=== PATIENT | female | born 1955 | race Caucasian/White ===

== ENCOUNTER → 2016-04-19 | Outpatient (CLI) | payer OTHER ==
[~2016-04-19] MED LIST: ACET-1256 PO; CEFD300C3 PO; CETI10TA10 PO; CLB/200 PO; CMD/25 PO; ENOX40IN SQ; FLUT0.0529 NAE; FLUT0.15 NAE; FLUT1INH INH; ONDA4TAB46 PO; OXYSR10 PO; QSTP PO; RXC5 PO; SNK PO; SYMIN160 PO; VTMD PO; WARF2.5T8 PO; WARF5TAB7 PO
--- NOTE | 2016-04-19 12:15 | DIAGNOSTIC IMAGING REPORT ---
FUSION CT SINUSES W/O CLINICAL HISTORY: R09.81 Nasal [id number] Chronic [id number] COMPARISON STUDY: No previous studies for comparison. FINDINGS: No orbital masses are visualized. There is no hydrocephalus. The mastoid air cells are symmetrically aerated. Middle ear cavities appear well aerated. There is a right maxilla sinus air-fluid level. There is mild left maxillary sinus mucosal thickening. There is fluid within the left sphenoid. There is moderate mucosal thickening involving ethmoid air cells. There is minimal mucosal disease within the frontal sinuses. The left ostiomeatal unit appears patent. There is obstruction of the right ostiomeatal unit. There is mild nasal septal deviation to the right. IMPRESSION: Pansinus disease with a right maxilla sinus air-fluid level and obstruction of the right ostiomeatal unit Electronically signed by: Yariel Beal M.D. 04/19/2016 12:13 PM Dictated Date/Time: 04/19/2016 12:11 PM
== END | disposition home or self-care (01) ==
LOC: C.CTS 11:51
PROVIDERS: ATTEND Hospitalist
DX: R09.81 Nasal congestion (principal); J32.4 Chronic pansinusitis; J34.89 Other specified disorders of nose and nasal sinuses

== ENCOUNTER → 2016-04-25 | Outpatient (CLI) | payer OTHER ==
--- NOTE | 2016-04-25 15:45 | DIAGNOSTIC IMAGING REPORT ---
TWO VIEW CHEST CLINICAL HISTORY: Community-acquired pneumonia. FINDINGS: PA and lateral chest radiographs are compared to study dated 03/12/2016. Correlation is made with chest CT dated 09/22/2015. The cardiomediastinal silhouette is unremarkable. There are streaky airspace opacities at the left lung base. The right lung appears clear. No pleural effusion is identified. There is no pneumothorax. The skeletal structures are osteopenic. The bony thorax appears intact. IMPRESSION: There are streaky airspace opacities at the left lung base. This could represent atelectasis versus an infectious or inflammatory pneumonitis. Clinical correlation will be required and radiographic follow-up to resolution is recommended. Electronically signed by: Baabk Hart M.D. 04/25/2016 3:43 PM Dictated Date/Time: 04/25/2016 3:41 PM
== END | disposition home or self-care (01) ==
LOC: C.RAD1850 15:32
PROVIDERS: ATTEND Internal Medicine Pulmonary Disease
DX: J18.9 Pneumonia, unspecified organism (principal)

== ENCOUNTER → 2016-05-28 | Outpatient (CLI) | payer OTHER ==
[2016-05-28 17:45] LABS: BASO % 0.2 %; BASO ABS # 0.01 K/uL (0-0.2); COMPLETE YES; EOS % 2.4 %; HEMATOCRIT 40.8 % (37-47); IG% 0.2 %; LYMPH % 19.3 %; LYMPH ABS # 1.11 K/uL (1.2-3.4); MEAN CELL VOLUME 82.9 fL (80-100); MEAN CORPUSCULAR HEMOGLOBIN 27.4 pg (25-34); MEAN CORPUSCULAR HGB CONC 33.1 g/dl (32-36); MEAN PLATELET VOLUME 9.7 fL (7.4-10.4); MONO % 8.2 %; NEUT % 69.7 %; PLATELET COUNT 213 K/uL (130-400); RED BLOOD COUNT 4.92 M/uL (4.2-5.4); WHITE BLOOD COUNT 5.75 K/uL (4.8-10.8)
[2016-05-28 18:06] LABS: ALT/SGPT 25 U/L (12-78); AST/SGOT 19 U/L (15-37)
[2016-05-28 18:09] LABS: ALKALINE PHOSPHATASE 88 U/L (45-117)
== END | disposition home or self-care (01) ==
LOC: C.LABBC 14:48
PROVIDERS: ATTEND Internal Medicine Rheumatology
DX: R76.8 Other specified abnormal immunological findings in serum (principal); M05.741 Rheumatoid arthritis with rheumatoid factor of right hand without organ or systems involvement; M05.742 Rheumatoid arthritis with rheumatoid factor of left hand without organ or systems involvement; Z51.81 Encounter for therapeutic drug level monitoring; Z79.01 Long term (current) use of anticoagulants

== ENCOUNTER 2016-07-03 04:36 | Observation (INO) | payer OTHER ==
[~2016-07-03] VITALS: Ht 165.1 cm; Wt 86.6 kg
[~2016-07-03 04:36] MED LIST changes: -ACET-1256 PO; -ENOX40IN SQ; -FLUT0.15 NAE; -FLUT1INH INH; -ONDA4TAB46 PO; -OXYSR10 PO; -QSTP PO; -RXC5 PO; -SNK PO; -SYMIN160 PO; -VTMD PO; -WARF2.5T8 PO; -WARF5TAB7 PO
[2016-07-03] MEDS ORDERED: ONDANSETRON INJ 2 MG/ML 2 ML VIAL IV STA ×2 (04:46→06:48)
[2016-07-03] MEDS ORDERED: SODIUM CHLORIDE 0.9% 1000ML 1,000 ML IV STA ×2 (04:46→06:05)
--- NOTE | 2016-07-03 04:49 | EMERGENCY ROOM VISIT NOTE ---
History Report prepared by Mono: Saul Pa Under the Supervision of: Dr. Anselmo Vizcaino M.D. First contact with patient: 04:41 Chief Complaint: DIZZY Stated Complaint: DIZZY, NAUSEA History of Present Illness The patient is a 61 year old female who presents to the Emergency Room with complaints of dizziness that began 3 hours ago. The patient's symptoms began with cramping in her legs and fingers. This then progressed into dizziness and nausea. She denies any fever, chest pain, shortness of breath, vomiting, melena , or urinary symptoms. She had Crohn's disease in the past, but it is now in remission. She has an colostomy bag in place that has been having a lot of output. She felt like this once in the past. She notes she is trying to keep up with her fluid intake. Source of History: patient, spouse/significant other Onset: 3 hours ago Position: other (global) Symptom Intensity: moderate Quality: other (dizziness) Timing: intermittent Associated Symptoms: + nausea, No SOB, No chest pain, No fevers, No melena, No urinary symptoms Review of Systems See HPI for pertinent positives & negatives. A total of 10 systems reviewed and were otherwise negative. Past Medical & Surgical Medical Problems: (1) Colectomy (2) Deep venous thrombosis (3) History of - section (4) History of appendectomy (5) History of repair of inguinal hernia (6) Incisional hernia repair (7) Menopause present (8) Partial colectomy (9) Plantar fascial fibromatosis (10) SICCA SYNDROME Old medical records were reviewed. Nurse's notes were reviewed and I agree with. Family History Blood clots Social History Smoking Status: Never Smoker Alcohol Use: none, occasionally Drug Use: none Marital Status: Housing Status: lives with family Occupation Status: employed Current/Historical Medications Scheduled Budesonide/Formoterol Fumarate (Symbicort 160/4.5 Inhaler), 2 PUFFS PO BID Celecoxib (CeleBREX), 200 MG PO BID Warfarin Sod (Coumadin), 5 MG PO WK Warfarin Sod (Coumadin), 2.5 MG PO 6XWK Scheduled PRN Fluticasone Propionate (Nasal) (Flonase Allergy Relief), 2 SPRAYS FREDIS QPM PRN for Nasal Congestion Allergies Coded Allergies: Ciprofloxacin (Verified Allergy, Intermediate, IV DOSE-BURNED UP ARM, 07/03) Iodinated Diagnostic Agents (Verified Allergy, Unknown, CAT SCAN DYE-RASH ITCHING, 07/03/16) Physical Exam Vital Signs Date Time Temp Pulse Resp B/P Pulse Ox O2 Delivery O2 Flow Rate FiO2 07/03/16 07:30 82 18 120/86 98 Room Air 07/03/16 06:11 65 20 143/86 99 Room Air 07/03/16 04:43 94 07/03/16 04:40 36.5 88 20 132/74 98 Room Air Physical Exam General: Non ill appearing older female. Well developed well nourished in no acute distress, breathing comfortably on room air. Normal speech HEENT: Normal cephalic atraumatic. Pupils are equal round and reactive to light. Sclerae anicteric. No nystagmus. Extraocular movements are intact. Oropharynx is pink with moist mucous membranes. No swelling of the mouth lips or tongue. Neck: Supple with a midline trachea. No meningeal signs or stiffness, no JVD or bruits. No Stridor. Chest: Clear to auscultation bilaterally. No wheezes or rhonchi. No increased work of breathing. Heart: regular rate and rhythm. Abdomen: Soft nontender, nondistended without rebound guarding or rigidity. Extremities: No cyanosis clubbing or edema. No calf tenderness or assymetry Spine/Back. Non tender to palpation. No CVA tenderness Skin: Good turgor without rashes. Neurologic exam: Cranial nerves two through 12 are intact. Motor and sensation are intact and symmetrical throughout. Medical Decision & Procedures Laboratory Results 07/03/16 04:48 Red Blood Count 5.77, Mean Corpuscular Volume 79.2, Mean Corpuscular Hemoglobin 27.0, Mean Corpuscular Hemoglobin Concent 34.1, Mean Platelet Volume 9.2, Neutrophils (%) (Auto) 74.4, Lymphocytes (%) (Auto) 15.8, Monocytes (%) (Auto) 7.8, Eosinophils (%) (Auto) 1.7, Basophils (%) (Auto) 0.1, Neutrophils # (Auto) 7.90, Lymphocytes # (Auto) 1.68, Monocytes # (Auto) 0.83, Eosinophils # (Auto) 0.18, Basophils # (Auto) 0.01 07/03/16 04:48 Test 07/03/16 04:48 07/03/16 04:54 White Blood Count 10.62 K/uL (4.8-10.8) Red Blood Count 5.77 M/uL (4.2-5.4) Hemoglobin 15.6 g/dL (12.0-16.0) Hematocrit 45.7 % (37-47) Mean Corpuscular Volume 79.2 fL (80-100) Mean Corpuscular Hemoglobin 27.0 pg (25-34) Mean Corpuscular Hemoglobin Concent 34.1 g/dl (32-36) Platelet Count 205 K/uL (130-400) Mean Platelet Volume 9.2 fL (7.4-10.4) Neutrophils (%) (Auto) 74.4 % Lymphocytes (%) (Auto) 15.8 % Monocytes (%) (Auto) 7.8 % Eosinophils (%) (Auto) 1.7 % Basophils (%) (Auto) 0.1 % Neutrophils # (Auto) 7.90 K/uL (1.4-6.5) Lymphocytes # (Auto) 1.68 K/uL (1.2-3.4) Monocytes # (Auto) 0.83 K/uL (0.11-0.59) Eosinophils # (Auto) 0.18 K/uL (0-0.5) Basophils # (Auto) 0.01 K/uL (0-0.2) RDW Standard Deviation 41.4 fL (36.4-46.3) RDW Coefficient of Variation 14.5 % (11.5-14.5) Immature Granulocyte % (Auto) 0.2 % Immature Granulocyte # (Auto) 0.02 K/uL (0.00-0.02) Anion Gap 10.0 mmol/L (3-11) Est Creatinine Clear Calc Drug Dose 54.9 ml/min Estimated GFR () 57.3 Estimated GFR (Non- 49.4 BUN/Creatinine Ratio 18.3 (10-20) Calcium Level 10.3 mg/dl (8.5-10.1) Total Bilirubin 0.6 mg/dl (0.2-1) Direct Bilirubin 0.1 mg/dl (0-0.2) Aspartate Amino Transf (AST/SGOT) 22 U/L (15-37) Alanine Aminotransferase (ALT/SGPT) 32 U/L (12-78) Alkaline Phosphatase 95 U/L (45-117) Total Protein 9.3 gm/dl (6.4-8.2) Albumin 4.0 gm/dl (3.4-5.0) Lipase 497 U/L (73-393) Bedside Troponin I 0.000 ng/ml (0-0.045) Laboratory studies as stated above per my review. Medications Administered Medications (Trade) Dose Ordered Sig/Jimmy Route Start Time Stop Time Status Last Admin Dose Admin Sodium Chloride (Nss 1000ml) 1,000 ml @ 999 mls/hr Q1H1M STAT IV 07/03/16 04:46 07/03/16 05:46 DC 07/03/16 04:53 999 MLS/HR Ondansetron HCl 4 mg 4 mg NOW STAT IV 07/03/16 04:46 07/03/16 04:47 DC 07/03/16 04:53 4 MG Sodium Chloride (Nss 1000ml) 1,000 ml @ 999 mls/hr Q1H1M STAT IV 07/03/16 06:05 07/03/16 07:05 DC 07/03/16 06:55 999 MLS/HR Ondansetron HCl (Zofran Inj) 4 mg NOW STAT IV 07/03/16 06:48 07/03/16 06:49 DC 07/03/16 06:54 4 MG ECG Indication: other (Dizziness) Rate (beats per minute): 63 Rhythm: normal sinus Findings: no acute ischemic change, no ectopy Comparison ECG Date: 19 Aug 2015 Change: no significant change ED Course 0441: Past medical records reviewed. The patient was evaluated in room A2, and a complete history and physical examination were performed. 0446: Zofran Inj 4 mg IV, Sodium Chloride 1000 ml @ 200 mls/hr IV, Sodium Chloride 1000 ml @ 999 mls/hr IV 0512: The patient states that she is beginning to feel better. 0605: Sodium Chloride 1000 ml @ 999 mls/hr IV 0648: Zofran Inj 4 mg IV 0730: Upon reevaluation, the patient is resting. I discussed the results and treatment plan with her. She verbalized agreement of the treatment plan. The patient was discharged home. Medical Decision Differentials include dehydration, electrolyte or metabolic abnormality, arrhythmia, and acute coronary syndrome. This patient comes in as described above she's been feeling dehydrated had some muscle cramps. She's had increased output in her ostomy. She felt a little dizzy as well. She has had no chest pain or shortness of breath. No blood in her stool. No recent illness or sick contacts. She's felt like this before when she's gotten dehydrated she tells m. e IV access established and she received 2 L IV normal saline in the ER. She received Zofran IV 2. EKG does not suggest acute coronary syndrome or arrhythmia. She has no acute electrolyte or metabolic abnormalities. His stool was negative for C. difficile. She was reassessed frequently. She's had multiple episodes of a large amount of greenish stool in her ostomy with gas. I think she is having some high-output. Despite having 2 L of IV normal saline and Zofran IV. she still does not feel well enough to go home. I do think she needs to be observed for further hydration and treatment. Impression Primary Impression: Dizziness Additional Impression: Dehydration Scribe Attestation The scribe's documentation has been prepared under my direction and personally reviewed by me in its entirety. I confirm that the note above accurately reflects all work, treatment, procedures, and medical decision making performed by me. Departure Information Dispostion Home / Self-Care Referrals Mary Arnett C.R.N.P. (PCP) Forms HOME CARE DOCUMENTATION FORM, IMPORTANT VISIT INFORMATION Patient Instructions My [facility] Problem Qualifiers
[2016-07-03] MEDS: SODIUM CHLORIDE 0.9% 1000ML 1,000 ML IV ONE ×3 (04:53→08:19)
[2016-07-03 04:59] LABS: BASO % 0.1 %; BASO ABS # 0.01 K/uL (0-0.2); COMPLETE YES; EOS % 1.7 %; HEMATOCRIT 45.7 % (37-47); IG% 0.2 %; LYMPH % 15.8 %; LYMPH ABS # 1.68 K/uL (1.2-3.4); MEAN CELL VOLUME 79.2 fL (80-100); MEAN CORPUSCULAR HGB CONC 34.1 g/dl (32-36); MEAN PLATELET VOLUME 9.2 fL (7.4-10.4); MONO % 7.8 %; NEUT % 74.4 %; PLATELET COUNT 205 K/uL (130-400); RED BLOOD COUNT 5.77 M/uL (4.2-5.4); WHITE BLOOD COUNT 10.62 K/uL (4.8-10.8)
[2016-07-03] MEDS ORDERED: SYMIN160 PO (05:00)
[2016-07-03] MEDS ORDERED: FLUT0.15 NAE (05:00)
[2016-07-03 05:19] LABS: BUN/CREATININE RATIO 18.3 (10-20); CALCIUM 10.3 mg/dl (8.5-10.1); CREATININE 1.2 mg/dl (0.60-1.20); POTASSIUM 4.1 mmol/L (3.5-5.1)
--- NOTE | 2016-07-03 09:09 | History and Physical ---
History & Physical Date & Time of Service: Jul 03, 2016 at 09:00 Chief Complaint: Dizzy, Nausea Primary Care Physician: Mary Arnett C.R.N.P. History of Present Illness Source: patient, family, clinic records, hospital records This patient is a pleasant 61-year-old female that presents the emergency department complaining of muscle cramping, nausea and increased output from her ostomy that started around 7 PM last night. The patient reports emptying her bag 6 times since 7 PM last night. She also notes a lot of gas in the bag. She denies any blood in the stool. She feels very nauseated but has not had any emesis. She denies any fever or chills. She denies any significant abdominal pain. No sick contacts. No antibiotic use recently. The patient has a history of Crohn's disease. She had a total colectomy and ileostomy performed in 2011 at [facility]. Her Crohn's disease has been in remission since. 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 Has a history of stroke Father-also living. History of coronary artery disease status post CABG Social History Smoking Status: Never Smoker Smokeless Tobacco Use: No Alcohol Use: none Drug Use: none Marital Status: Housing status: lives with family Occupational Status: employed Immunizations History of Influenza Vaccine: No History of Tetanus Vaccine?: Yes Tetanus Immunization Date: Apr 14, 2007 History of Pneumococcal: No History of Hepatitis B Vaccine: Yes Hepatitis Immunization Date: Apr 14, 2009 Multi-Drug Resistant Organisms History of MDRO: No Allergies Coded Allergies: Ciprofloxacin (Verified Allergy, Intermediate, IV DOSE-BURNED UP ARM, 07/03) Iodinated Diagnostic Agents (Verified Allergy, Unknown, CAT SCAN DYE-RASH ITCHING, 07/03/16) Home Medications Scheduled Budesonide/Formoterol Fumarate (Symbicort 160/4.5 Inhaler), 2 PUFFS PO BID Celecoxib (CeleBREX), 200 MG PO BID Warfarin Sod (Coumadin), 5 MG PO WK Warfarin Sod (Coumadin), 2.5 MG PO 6XWK Scheduled PRN Fluticasone Propionate (Nasal) (Flonase Allergy Relief), 2 SPRAYS FREDIS QPM PRN for Nasal Congestion Review of Systems 10 system review performed and negative unless noted in HPI or below Physical Exam Vital Signs Date Time Temp Pulse Resp B/P Pulse Ox O2 Delivery O2 Flow Rate FiO2 07/03/16 08:51 70 18 129/76 98 Room Air 07/03/16 08:25 70 07/03/16 07:30 82 18 120/86 98 Room Air 07/03/16 06:11 65 20 143/86 99 Room Air 07/03/16 04:43 94 07/03/16 04:40 36.5 88 20 132/74 98 Room Air VITALS: Vitals are noted on the nurse's note and reviewed by myself. Vital signs stable. GENERAL: 61-year-old female, in no acute distress, SKIN: The skin was without rashes, erythema, edema, or bruising. HEAD: Normocephalic atraumatic. EYES: Pupils equal round and reactive to light and accommodation. Conjunctivae without injection, sclerae without icterus. Extraocular movements intact. MOUTH: Mucous membranes slightly dry. NECK: Supple without nuchal rigidity. No JVD. HEART: Regular rate and rhythm without murmurs gallops or rubs. LUNGS: Clear to auscultation bilaterally without wheezes, rales or rhonchi. No accessory muscle use. ABDOMEN: Bowel sounds present, but hypoactive. Large amount of liquid green stool noted in the ostomy. Midline well-healed incision noted. Nontender. Nondistended. MUSCULOSKELETAL: No muscle atrophy, erythema, or edema noted. Strength 5/5 throughout. NEURO: Patient was alert and oriented to person place and time. Normal sensation to touch. No focal neurological deficits. Diagnostics Laboratory Results Results Past 24 Hours Test 07/03/16 04:48 07/03/16 04:54 Range/Units White Blood Count 10.62 4.8-10.8 K/uL Red Blood Count 5.77 4.2-5.4 M/uL Hemoglobin 15.6 12.0-16.0 g/dL Hematocrit 45.7 37-47 % Mean Corpuscular Volume 79.2 80-100 fL Mean Corpuscular Hemoglobin 27.0 25-34 pg Mean Corpuscular Hemoglobin Concent 34.1 32-36 g/dl Platelet Count 205 130-400 K/uL Mean Platelet Volume 9.2 7.4-10.4 fL Neutrophils (%) (Auto) 74.4 % Lymphocytes (%) (Auto) 15.8 % Monocytes (%) (Auto) 7.8 % Eosinophils (%) (Auto) 1.7 % Basophils (%) (Auto) 0.1 % Neutrophils # (Auto) 7.90 1.4-6.5 K/uL Lymphocytes # (Auto) 1.68 1.2-3.4 K/uL Monocytes # (Auto) 0.83 0.11-0.59 K/uL Eosinophils # (Auto) 0.18 0-0.5 K/uL Basophils # (Auto) 0.01 0-0.2 K/uL RDW Standard Deviation 41.4 36.4-46.3 fL RDW Coefficient of Variation 14.5 11.5-14.5 % Immature Granulocyte % (Auto) 0.2 % Immature Granulocyte # (Auto) 0.02 0.00-0.02 K/uL Sodium Level 139 136-145 mmol/L Potassium Level 4.1 3.5-5.1 mmol/L Chloride Level 103 98-107 mmol/L Carbon Dioxide Level 26 21-32 mmol/L Anion Gap 10.0 3-11 mmol/L Blood Urea Nitrogen 22 7-18 mg/dl Creatinine 1.20 0.60-1.20 mg/dl Est Creatinine Clear Calc Drug Dose 54.9 ml/min Estimated GFR () 57.3 Estimated GFR (Non- 49.4 BUN/Creatinine Ratio 18.3 10-20 Random Glucose 137 70-99 mg/dl Calcium Level 10.3 8.5-10.1 mg/dl Total Bilirubin 0.6 0.2-1 mg/dl Direct Bilirubin 0.1 0-0.2 mg/dl Aspartate Amino Transf (AST/SGOT) 22 15-37 U/L Alanine Aminotransferase (ALT/SGPT) 32 12-78 U/L Alkaline Phosphatase 95 45-117 U/L Total Protein 9.3 6.4-8.2 gm/dl Albumin 4.0 3.4-5.0 gm/dl Lipase 497 73-393 U/L Bedside Troponin I 0.000 0-0.045 ng/ml Microbiology Results 07/03/16 WBC Smear - Final, Resulted 07/03/16 Shiga Toxin Test, Resulted Pending 07/03/16 Stool Culture, Resulted Pending 07/03/16 C.difficile Toxin B Gene (PCR) - Final, Complete No C. difficile toxin B gene detected Impression Assessment and Plan 61-year-old female presents emergency department with main complaint of nausea and increased output from her ileostomy. Also notes muscle cramping in her lower legs. Nausea, diarrhea-possible viral GI illness. Recurrent Crohn's flare thought to be less likely. I do not have a high suspicion for bacterial infection as the patient is afebrile with no leukocytosis -Observe medical floor -Continue IVF -NS + 20 mEq KCl @ 125 cc/hr -Continue Zofran 4 mg every 6 hours as needed for nausea. I will also add Phenergan 12.5 mg IV every 6 hours. These may be alternated as needed -Stool culture, WBC, C. difficile -If no improvement in 24 hours, consider CT of the abdomen and pelvis to evaluate for possible Crohn's flare -Follow CBC and electrolytes History of DVT -Continue home dose of warfarin. Patient reports taking 2.5 mg every day but Friday when she takes 5 mg -follow INR History Sjogren syndrome-noted DVT prophylaxis -Coumadin -Teds, SCDs CODE STATUS -LEVEL I FULL CODE PA Physician Supervision Note: I interviewed and examined the patient. Discussed with Taylor LE and agree with findings and plan as documented in the note. Any exceptions or clarifications are listed here: None This pt has high ostomy output, recent viral exposure to grandchild vss abd with hyperactive bowel sounds, soft supportive care for likely viral gastroenteritis Documented By: Harvey June Level of Care Med/Surg Resuscitation Status FULL RESUSCITATION VTE Prophylaxis VTE Risk Assessment Done? Y/N: Yes Risk Level: Moderate Given or contraindicated: Warfarin (Coumadin), T.E.D. Stockings, SCD's
[2016-07-03] MEDS ORDERED: ACETAMINOPHEN 325 MG TAB PO PRN (09:15)
[2016-07-03] MEDS ORDERED: PROMETHAZINE HCL INJ 12.5 MG in SODIUM CHLORIDE 0.9% 50ML 50 ML IV PRN (09:15)
[2016-07-03] MEDS ORDERED: ONDANSETRON INJ 2 MG/ML 2 ML VIAL IV PRN (09:15)
[2016-07-03 09:47] LABS: INR 1.8 (0.9-1.1); PROTHROMBIN TIME (PATIENT) 19.4 SECONDS (9.0-12.0)
[2016-07-03] MEDS ORDERED: IV FLUIDS COMPLETED PRN (10:15)
[2016-07-03 10:30] VITALS: BP 127/77; PULSE 67; TEMP 36.8; Ht 165.1 cm; Wt 86.6 kg
[2016-07-03] MEDS ORDERED: NURSING VERBAL MED ORDER ONE (11:00)
[2016-07-03] MEDS: NSS + 20MEQ KCL 1000ML 1,000 ML IV SCH ×2 (11:11→20:54)
[2016-07-03 15:52] VITALS: BP 134/78; PULSE 77; TEMP 36.6; O2SAT 97
[2016-07-03] MEDS ORDERED: WARFARIN SOD 2.5 MG TAB PO SCH (16:00)
[2016-07-03 16:05] VITALS: O2SAT 97
[2016-07-03] MEDS: CeleBREX 200 MG CAP PO SCH (20:54)
[2016-07-03] MEDS: BUDESONIDE/FORMOTEROL FUMARATE 160/4.5 60 PUFFS/INHALER INH SCH (20:55)
[2016-07-03 23:58] VITALS: BP 117/62; PULSE 71; TEMP 36.6; O2SAT 94
[2016-07-04] MEDS: NSS + 20MEQ KCL 1000ML 1,000 ML IV SCH (03:23)
[2016-07-04 06:12] LABS: BASO % 0.1 %; BASO ABS # 0.01 K/uL (0-0.2); COMPLETE YES; EOS % 5.1 %; HEMATOCRIT 42.7 % (37-47); IG% 0.1 %; LYMPH % 15.8 %; LYMPH ABS # 1.11 K/uL (1.2-3.4); MEAN CELL VOLUME 81.6 fL (80-100); MEAN CORPUSCULAR HEMOGLOBIN 26.2 pg (25-34); MEAN CORPUSCULAR HGB CONC 32.1 g/dl (32-36); MEAN PLATELET VOLUME 9.1 fL (7.4-10.4); MONO % 8.1 %; NEUT % 70.8 %; PLATELET COUNT 179 K/uL (130-400); RED BLOOD COUNT 5.23 M/uL (4.2-5.4); WHITE BLOOD COUNT 7.04 K/uL (4.8-10.8)
[2016-07-04 06:24] LABS: INR 2.1 (0.9-1.1); PROTHROMBIN TIME (PATIENT) 23.7 SECONDS (9.0-12.0)
[2016-07-04 06:41] LABS: BUN/CREATININE RATIO 9.6 (10-20); CALCIUM 8.7 mg/dl (8.5-10.1); CREATININE 1.1 mg/dl (0.60-1.20); MAGNESIUM 1.9 mg/dl (1.8-2.4); POTASSIUM 4.7 mmol/L (3.5-5.1)
[2016-07-04 07:57] VITALS: BP 136/88; PULSE 60; TEMP 36.3; O2SAT 100
[2016-07-04] MEDS: CeleBREX 200 MG CAP PO SCH (08:35)
[2016-07-04] MEDS: BUDESONIDE/FORMOTEROL FUMARATE 160/4.5 60 PUFFS/INHALER INH SCH (08:35)
[2016-07-04 10:04] VITALS: BP_SYST 107; BP_SYST 113; BP_SYST 125; BP_DIAS 73; BP_DIAS 82; PULSE 69; PULSE 75; PULSE 90
[2016-07-04] MEDS ORDERED: ONDA4TAB46 PO (10:37)
--- NOTE | 2016-07-04 10:42 | Discharge Instructions ---
Discharge Instructions Date of Service Jul 04, 2016. Admission Reason for Admission: Dehydration Discharge Discharge Diagnosis / Problem: viral GI illness Discharge Goals Goal(s): Improve function Activity Recommendations Activity Limitations: resume your previous activity . Instructions / Follow-Up Instructions / Follow-Up You have been treated in the hospital for vomiting and diarrhea. This is likely caused by a GI illness. You were treated with IV fluids and antinausea medication Please follow a bland diet. Avoid spicy or acidic foods. No alcohol, caffeine or nicotine. Increase fluids over the next 2 days The following changes/additions have been made to your medication list: -Zofran 4 mg every 6 hours as needed for nausea -I would recommend holding Celebrex for 2 days if possible Please follow up with your family physician within one week Call your doctor or return to the emergency department if you have any of the following symptoms: -Fever of 101F or greater -Persistent vomiting - Persistent diarrhea -Severe abdominal pain -Chest pain -Shortness of breath -severe dizziness -weakness on one side of your body Current Hospital Diet Patient's current hospital diet: Regular Diet Discharge Diet Recommended Diet: Regular Diet (bland) Pending Studies Studies pending at discharge: yes List of pending studies: Stool culture Medical Emergencies . Who to Call and When: Medical Emergencies: If at any time you feel your situation is an emergency, please call 911 immediately. . Non-Emergent Contact Non-Emergency issues call your: Primary Care Provider . . "Provider Documentation" section prepared by Taylor Gonzales. VTE Core Measure Inpt VTE Proph given/why not?: Warfarin (Coumadin), Chely Paul, SCD's
--- NOTE | 2016-07-04 10:53 | Discharge Summary ---
Discharge Summary Date of Service Jul 04, 2016. (Taylor Gonzales PA-C) Discharge Summary Admission Date: Jul 03, 2016 at 09:24 Discharge Date: Jul 04, 2016 Discharge Disposition: Home Principal Diagnosis: viral GI illness Problems/Secondary Diagnoses: DVT Crohn's disease Restrictive airway disease Immunizations: Have You Had Influenza Vaccine: No History of Tetanus Vaccine?: Yes Tetanus Immunization Date: Apr 14, 2007 History of Pneumococcal: No History of Hepatitis B Vaccine: Yes Hepatitis Immunization Date: Apr 14, 2009 (Taylor Gonzales PA-C) Medication Reconciliation New Medications: Ondansetron Hcl (Zofran) 4 Mg Tab 4 MG PO Q6H PRN for Nausea, #20 TAB Continued Medications: Budesonide/Formoterol Fumarate (Symbicort 160/4.5 Inhaler) 120 Puffs/ Aero 2 PUFFS PO BID Celecoxib (CeleBREX) 200 Mg Cap 200 MG PO BID, CAP Fluticasone Propionate (Nasal) (Flonase Allergy Relief) 50 Mcg/Act Spr 2 SPRAYS FREDIS QPM PRN for Nasal Congestion Warfarin Sod (Coumadin) 2.5 Mg Tab 5 MG PO WK, #10 TAB ONLY SAT EVENING Warfarin Sod (Coumadin) 2.5 Mg Tab 2.5 MG PO 6XWK, #30 TAB [id number] Referrals At Discharge Follow up Referrals: Physician Referral - Within 1-2 Weeks with Mary Arnett C.R.N.P. Discharge Exam Doing much better this morning. Denies any nausea. Tolerating her clear liquid diet. Output from the ostomy has significantly decreased. Denies any abdominal pain or fevers. Review of Systems: Constitutional: No fever Respiratory: No shortness of breath Cardiovascular: No chest pain Abdomen: No nausea Neurologic: No weakness Physical Exam: General Appearance: no apparent distress Eyes: EOMI ENT: + pertinent finding (oral mucosa slightly dry) Neck: no JVD Respiratory/Chest: lungs clear Cardiovascular: regular rate, rhythm Abdomen / GI: normal bowel sounds, non tender, soft, + pertinent finding ( ostomy bag approximately 1/4 full of green/brown stool.) Extremities: no calf tenderness, no pedal edema Neurologic/Psychiatric: no motor/sensory deficits, oriented x 3 Skin: warm/dry (Taylor Gonzales PA-C) Hospital Course 61-year-old female presents emergency department with main complaint of nausea and increased output from her ileostomy. Also notes muscle cramping in her lower legs. Nausea, and increased output from the ostomy/diarrhea-likely viral GI illness given recent exposure to grandchild. Recurrent Crohn's flare thought to be less likely. I do not have a high suspicion for bacterial infection as the patient is afebrile with no leukocytosis -Observed medical floor -treated with IVF, zofran and phenergan -C. difficile negative. Shiga toxin negative. Many WBCs seen in the stool. -Stool culture pending -Tolerating full diet on the day of discharge -given Rx for zofran PRN History of DVT-INR therapeutic on the day of discharge at 2.1 -Continue home dose of warfarin. Patient reports taking 2.5 mg every day but Friday when she takes 5 mg History Sjogren syndrome-noted DVT prophylaxis -Coumadin -Teds, SCDs CODE STATUS -LEVEL I FULL CODE Total Time Spent: Greater than 30 minutes This includes examination of the patient, discharge planning, medication reconciliation, and communication with other providers. (Taylor Gonzales PA-C) PA Physician Supervision Note: I interviewed and examined the patient. Discussed with Taylor Gonzales PAC and agree with findings and plan as documented in the note. Any exceptions or clarifications are listed here: None This pt has reduced ostomy output, recent viral exposure to grandchild vss, infectious studies are normal abd with hyperactive bowel sounds, soft, less fluid in ostomy bag, non tender ok for home likely viral gastroenteritis Documented By: Harvey June (Harvey June M.D.) Discharge Instructions Please refer to the electronic Patient Visit Report (Discharge Instructions) for additional information. (Taylor Gonzales PA-C) Follow-Up PCP in 1 week (Taylor Gonzales PA-C) Additional Copies To Mary Arnett C.R.N.P.
[2016-07-04 12:15] VITALS: BP 107/73; PULSE 90; TEMP 36.3; O2SAT 100
[2016-07-06] MEDS ORDERED: WARFARIN SOD 5 MG TAB PO SCH (16:00)
[2016-07-09] MEDS ORDERED: QSTP PO (14:13)
[2016-07-09] MEDS ORDERED: VTMD PO (14:13)
[2016-11-15] MEDS ORDERED: WARF2.5T8 PO (13:12)
[2016-11-15] MEDS ORDERED: FLUT1INH INH (13:12)
[2016-11-15] MEDS ORDERED: WARF5TAB7 PO (13:12)
== END 2016-07-04 13:40 | disposition home or self-care (01) ==
LOC: ENRESERVTM → ENRESERVDT → EDBD 04:36 → C.EDA 04:38 → C.MS4W 09:24
PROVIDERS: ADMIT Internal Medicine; ATTEND Internal Medicine
DX: E86.0 Dehydration (principal); B34.9 Viral infection, unspecified; R42 Dizziness and giddiness; K50.90 Crohn's disease, unspecified, without complications; Z93.2 Ileostomy status; M35.00 Sjogren syndrome, unspecified; M06.9 Rheumatoid arthritis, unspecified; J45.909 Unspecified asthma, uncomplicated; Z90.49 Acquired absence of other specified parts of digestive tract; Z88.1 Allergy status to other antibiotic agents; Z91.041 Radiographic dye allergy status; Z86.718 Personal history of other venous thrombosis and embolism; Z79.01 Long term (current) use of anticoagulants; Z82.49 Family history of ischemic heart disease and other diseases of the circulatory system; Z82.3 Family history of stroke

== ENCOUNTER 2016-07-08 00:37 | Observation (INO) | payer OTHER ==
[~2016-07-08] VITALS: Ht 160 cm; Wt 83.6 kg
[~2016-07-08 00:37] MED LIST changes: -CEFD300C3 PO; -CETI10TA10 PO; -FLUT0.0529 NAE; +FLUT0.15 NAE; +ONDA4TAB46 PO; +SYMIN160 PO
[2016-07-08] MEDS ORDERED: ONDANSETRON INJ 2 MG/ML 2 ML VIAL IV STA (01:02)
[2016-07-08] MEDS ORDERED: SODIUM CHLORIDE 0.9% 1000ML 1,000 ML IV ONE ×3 (01:15→04:45)
[2016-07-08 01:16] LABS: BASO % 0.3 %; BASO ABS # 0.02 K/uL (0-0.2); COMPLETE YES; EOS % 2.5 %; HEMATOCRIT 41.4 % (37-47); IG% 0.3 %; LYMPH % 13.8 %; LYMPH ABS # 1.04 K/uL (1.2-3.4); MEAN CELL VOLUME 79.2 fL (80-100); MEAN CORPUSCULAR HEMOGLOBIN 27.2 pg (25-34); MEAN CORPUSCULAR HGB CONC 34.3 g/dl (32-36); NEUT % 76.1 %; PLATELET COUNT 175 K/uL (130-400); RED BLOOD COUNT 5.23 M/uL (4.2-5.4); WHITE BLOOD COUNT 7.54 K/uL (4.8-10.8)
[2016-07-08 01:35] LABS: BUN/CREATININE RATIO 19.3 (10-20); CALCIUM 9.2 mg/dl (8.5-10.1); CREATININE 1.2 mg/dl (0.60-1.20); MAGNESIUM 1.9 mg/dl (1.8-2.4); POTASSIUM 3.9 mmol/L (3.5-5.1)
[2016-07-08 01:38] LABS: ALB/GLOB RATIO 0.8 (0.9-2)
[2016-07-08] MEDS ORDERED: PROMETHAZINE HCL INJ 12.5 MG in SODIUM CHLORIDE 0.9% 50ML 50 ML IV STA (04:14)
--- NOTE | 2016-07-08 04:20 | EMERGENCY ROOM VISIT NOTE ---
ED Visit Note First contact with patient: 00:45 I saw this patient in conjunction with Luther Garcia PA-C. I agree with his decision making and treatment plan.
[2016-07-08 05:27] LABS: INR 2.8 (0.9-1.1); PARTIAL THROMBOPLASTIN RATIO 1.4; PROTHROMBIN TIME (PATIENT) 30.9 SECONDS (9.0-12.0)
--- NOTE | 2016-07-08 05:42 | History and Physical ---
History & Physical Date & Time of Service: Jul 08, 2016 at 05:37 Chief Complaint: Nausea,Fluid Loss Primary Care Physician: Mary Arnett C.R.N.P. History of Present Illness Source: patient, family This is a 61 y/o F who presents with a 1 day history of high output from her ostomy. She was recently admitted for similar complaints. At the time she was treated with IVFs and anti-nausea meds. Her diarrhea improved and she was discharged soon after. She reports that she remained asymptomatic for 4-5 days after until yesterday when her stools were watery again and green. She did have exposure to her grand kids who had some diarrhea in the last week. She denies antibiotic use. While in the ED for the first 3 hours, she put out approximately 1 L of watery stools and had about 875 ml of emesis. 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 Denies melena, hematochezia, hematemesis, chest pain, shortness of breath, fevers, chills, dizziness. She reports having tried the protocol given by her GI doc for high output- combination of Gatorade, water and soda- but there was no improvement. Past Medical/Surgical History Medical Problems: (1) Colectomy Status: Resolved (2) Deep venous thrombosis Status: Resolved (3) History of - section Status: Resolved (4) History of appendectomy Status: Resolved (5) History of repair of inguinal hernia Status: Resolved (6) Incisional hernia repair Status: Resolved (7) Menopause present Status: Chronic (8) Partial colectomy Status: Resolved (9) Plantar fascial fibromatosis Status: Chronic (10) SICCA SYNDROME Status: Resolved Family History Blood clots Social History Smoking Status: Never Smoker Alcohol Use: none Drug Use: none Marital Status: Housing status: lives with family Occupational Status: employed Immunizations History of Influenza Vaccine: No History of Tetanus Vaccine?: Yes Tetanus Immunization Date: Apr 14, 2007 History of Pneumococcal: No History of Hepatitis B Vaccine: Yes Hepatitis Immunization Date: Apr 14, 2009 Multi-Drug Resistant Organisms History of MDRO: No Allergies Coded Allergies: Ciprofloxacin (Verified Allergy, Intermediate, IV DOSE-BURNED UP ARM, 07/08) Iodinated Diagnostic Agents (Verified Allergy, Unknown, CAT SCAN DYE-RASH ITCHING, 07/08/16) Home Medications Scheduled Budesonide/Formoterol Fumarate (Symbicort 160/4.5 Inhaler), 2 PUFFS PO BID Celecoxib (CeleBREX), 200 MG PO BID Warfarin Sod (Coumadin), 5 MG PO WK Warfarin Sod (Coumadin), 2.5 MG PO 6XWK Scheduled PRN Fluticasone Propionate (Nasal) (Flonase Allergy Relief), 2 SPRAYS FREDIS QPM PRN for Nasal Congestion Ondansetron Hcl (Zofran), 4 MG PO Q6H PRN for Nausea Review of Systems Constitutional: No chills, No fever, No sweats, No weakness, No weight loss Respiratory: No cough, No dyspnea at rest, No dyspnea on exertion, No shortness of breath, No sputum, No wheezing Abdomen: + diarrhea, + nausea, + vomiting Genitourinary - Female: No dysuria, No urinary frequency, No urinary urgency Physical Exam Vital Signs Date Time Temp Pulse Resp B/P Pulse Ox O2 Delivery O2 Flow Rate FiO2 07/08/16 04:12 72 20 135/68 99 Room Air 07/08/16 02:09 80 18 129/71 100 Room Air 07/08/16 00:39 37.0 84 18 156/73 97 Room Air General Appearance: no apparent distress Eyes: normal inspection, PERRL, EOMI Neck: no adenopathy Respiratory/Chest: lungs clear, normal breath sounds, no respiratory distress, no accessory muscle use Cardiovascular: regular rate, rhythm, no edema Abdomen/GI: soft, + abnormal bowel sounds (hyperactive), + pertinent finding ( ostomy intact, bag with green watery stool) Extremities/Musculoskelatal: no calf tenderness, normal capillary refill, no pedal edema Neurologic/Psych: no motor/sensory deficits, alert, normal mood/affect, oriented x 3 Diagnostics Laboratory Results Results Past 24 Hours Test 07/08/16 01:05 Range/Units White Blood Count 7.54 4.8-10.8 K/uL Red Blood Count 5.23 4.2-5.4 M/uL Hemoglobin 14.2 12.0-16.0 g/dL Hematocrit 41.4 37-47 % Mean Corpuscular Volume 79.2 80-100 fL Mean Corpuscular Hemoglobin 27.2 25-34 pg Mean Corpuscular Hemoglobin Concent 34.3 32-36 g/dl Platelet Count 175 130-400 K/uL Mean Platelet Volume 9.0 7.4-10.4 fL Neutrophils (%) (Auto) 76.1 % Lymphocytes (%) (Auto) 13.8 % Monocytes (%) (Auto) 7.0 % Eosinophils (%) (Auto) 2.5 % Basophils (%) (Auto) 0.3 % Neutrophils # (Auto) 5.74 1.4-6.5 K/uL Lymphocytes # (Auto) 1.04 1.2-3.4 K/uL Monocytes # (Auto) 0.53 0.11-0.59 K/uL Eosinophils # (Auto) 0.19 0-0.5 K/uL Basophils # (Auto) 0.02 0-0.2 K/uL RDW Standard Deviation 41.4 36.4-46.3 fL RDW Coefficient of Variation 14.4 11.5-14.5 % Immature Granulocyte % (Auto) 0.3 % Immature Granulocyte # (Auto) 0.02 0.00-0.02 K/uL Prothrombin Time 30.9 9.0-12.0 SECONDS Prothromb Time International Ratio 2.8 0.9-1.1 Activated Partial Thromboplast Time 36.2 21.0-31.0 SECONDS Partial Thromboplastin Ratio 1.4 Sodium Level 143 136-145 mmol/L Potassium Level 3.9 3.5-5.1 mmol/L Chloride Level 106 98-107 mmol/L Carbon Dioxide Level 25 21-32 mmol/L Anion Gap 12.0 3-11 mmol/L Blood Urea Nitrogen 23 7-18 mg/dl Creatinine 1.20 0.60-1.20 mg/dl Est Creatinine Clear Calc Drug Dose 52.1 ml/min Estimated GFR () 57.3 Estimated GFR (Non- 49.4 BUN/Creatinine Ratio 19.3 10-20 Random Glucose 140 70-99 mg/dl Calcium Level 9.2 8.5-10.1 mg/dl Magnesium Level 1.9 1.8-2.4 mg/dl Total Bilirubin 0.3 0.2-1 mg/dl Aspartate Amino Transf (AST/SGOT) 24 15-37 U/L Alanine Aminotransferase (ALT/SGPT) 30 12-78 U/L Alkaline Phosphatase 85 45-117 U/L Total Protein 8.0 6.4-8.2 gm/dl Albumin 3.6 3.4-5.0 gm/dl Globulin 4.4 2.5-4.0 gm/dl Albumin/Globulin Ratio 0.8 0.9-2 Impression Assessment and Plan This is a 61 y/o F with a history of Crohn's dz s/p Colectomy and ostomy who presents for the 2nd time with high output from her ostomy. High output from ostomy: IV NSS Cholestyramine Electrolyte management Keep NPO Since this is second admission, will consult GI for further recommendations Zofran for Nausea C.Diff, Stool cultures KUB without evidence of bowel obstruction. History of DVT Continue Coumadin Code: Full Level of Care Med/Surg Resuscitation Status FULL RESUSCITATION VTE Prophylaxis VTE Risk Assessment Done? Y/N: Yes Risk Level: Moderate Assessment and Plan Attending Addendum: I have physically seen and examined this patient, have directed their medical care, have supervised the medical residents activities, and agree with the H&P as noted above, with the following changes: The patient is awake, well-developed and adequately nourished, alert and oriented 3, normocephalic and atraumatic, lying in bed and in no acute distress. HEENT--PERRL, EOMI, mucous membranes and oropharynx dry. Neck--supple, no JVD or bruits, thyroid normal, trachea midline, no adenopathy. Heart--normal S1 and S2, no extra beats, no murmurs, rubs or gallops. Lungs--clear bilaterally with good air movement, no respiratory distress, no accessory muscle use. Abdomen--normal bowel sounds and soft, nontender and nondistended, no hernias or masses, no organomegaly. Ostomy patent. Extremities--no cyanosis, clubbing or edema. There are good distal pulses b/l. Dermatologic--normal skin turgor, normal color, warm and dry, no abnormal lymph nodes, no rash. Neurologic--cranial nerves II through XII grossly intact, motor and sensory examination normal. Rheumatologic--normal range of motion, nontender, muscles and joints. Psychiatric--normal affect. High output through ostomy--the patient was admitted from [facility] through July 04 the same complaints, and was treated conservatively. She reports that she had felt better until approximately 10:00 PM this evening when she started having abrupt increase in output again. She'll be admitted for observation. We'll aggressively hydrate with IV fluids, follow serial electrolytes. Stool studies are pending. We'll consult her psychiatry adult physician Dr. Drummond. Zofran 4 mg IV every 6 hours when necessary nausea, Protonix 40 mg IV daily for acid reduction. She may be a candidate cholestyramine later on to help control symptoms, but we will not prescribe at this time. Chronic anticoagulation--INR has been added to her laboratories per my request and is still pending at this time. Coumadin will be dosed appropriately based on results of pending INR.
[2016-07-08] MEDS ORDERED: ENOXAPARIN 40 MG/0.4 ML SYR SQ SCH (05:45)
[2016-07-08] MEDS ORDERED: ACETAMINOPHEN 325 MG TAB PO PRN (05:45)
[2016-07-08] MEDS ORDERED: ONDANSETRON INJ 2 MG/ML 2 ML VIAL IV PRN ×2 (05:45)
[2016-07-08] MEDS ORDERED: POLYETHYLENE (MIRALAX) 17 GM PACK PO PRN (05:45)
[2016-07-08] MEDS ORDERED: MAGNESIUM HYDROXIDE SUSP 30 ML UDC PO PRN (05:45)
[2016-07-08] MEDS ORDERED: ALUMINUM/MAGNESIUM/SIMETH (MAALOX MAX) 30 ML UDC PO PRN (05:45)
[2016-07-08] MEDS ORDERED: FLUTICASONE PROPIONATE NA SPR 16 GM BTL NAE PRN (05:45)
[2016-07-08] MEDS ORDERED: IV FLUIDS COMPLETED PRN (06:30)
[2016-07-08 07:13] VITALS: BP 126/80; PULSE 80; TEMP 36.6; O2SAT 98
--- NOTE | 2016-07-08 07:32 | DIAGNOSTIC IMAGING REPORT ---
KUB CLINICAL HISTORY: Nausea and vomiting. FINDINGS: 2 AP supine abdominal radiographs are compared to study dated 11/03/2011 and correlated with abdominal CT dated 07/01/2010. There is a nonobstructed abdominal bowel gas pattern. Suture material is noted in the right lower quadrant and there is a right lower quadrant ostomy. No evidence of intraperitoneal free air is seen on these supine views. There are no abnormal abdominal calcifications. The skeletal structures are osteopenic and there is mild lumbosacral spondylosis. IMPRESSION: Nonobstructed abdominal bowel gas pattern noting postoperative changes as above. Electronically signed by: Babak Hart M.D. 07/08/2016 7:31 AM Dictated Date/Time: 07/08/2016 7:29 AM
[2016-07-08] MEDS: BUDESONIDE/FORMOTEROL FUMARATE 160/4.5 60 PUFFS/INHALER INH SCH ×2 (07:52→19:59)
[2016-07-08] MEDS: CeleBREX 200 MG CAP PO SCH ×2 (07:54→19:59)
[2016-07-08] MEDS: CHOLESTYRAMINE LIGHT 4 GM PKT PO SCH ×2 (07:54→21:34)
[2016-07-08 08:00] VITALS: BP 126/80; PULSE 80; TEMP 36.6; O2SAT 98; Ht 160 cm; Wt 83.6 kg
[2016-07-08 08:13] LABS: BUN/CREATININE RATIO 18.6 (10-20); CALCIUM 8.2 mg/dl (8.5-10.1); MAGNESIUM 1.7 mg/dl (1.8-2.4)
[2016-07-08 08:14] LABS: PHOSPHORUS 2.6 mg/dl (2.5-4.9)
[2016-07-08] MEDS ORDERED: CHLORASEPTIC 1.4% SOLN 180 ML BTL MT PRN (10:30)
[2016-07-08] MEDS ORDERED: NURSING VERBAL MED ORDER ONE (10:30)
--- NOTE | 2016-07-08 10:56 | Gastrointestinal Consultation ---
Gastrointestinal Consultation Date of Consultation: Jul 08, 2016 Attending Physician: Sarah Consulting Physician: Pradeep Reason for Consultation: high output from ileostomy History of Present Illness Ms. Ortiz is a 61 year old female with past medical history significant for DVT (on Coumadin), Crohn's (total proctocolectomy with ileostomy 2011), sicca syndrome, SVT an anemia who presents to the ED with high output from her ostomy bag. She reports that this happened last week as well but resolved with bowel rest and IVF, stools were negative during previous admission. Prior to arrival on 07/08/16 she was experiencing fatigue, increase output and nausea. There was one episode of emesis in the ED. She reports she feels much better since she was admitted. Denies fever, chills, nausea, vomiting. + sick contacts. She was with her grand-kids las week who were sick. Drinks well water. Denies any issues with flare or symptoms. She stopped humira in 03/29 an has been doing well since. Her arthralgia are being managed by Celebrex. KUB 07/08/16: 2 AP supine abdominal radiographs are compared to study dated 2011 and correlated with abdominal CT dated 07/01/2010. There is a nonobstructed abdominal bowel gas pattern. Suture material is noted in the right lower quadrant and there is a right lower quadrant ostomy. No evidence of intraperitoneal free air is seen on these supine views. There are no abnormal abdominal calcifications. The skeletal structures are osteopenic and there is mild lumbosacral spondylosis. Colon 05/10/11: Inflammation was found from the rectum to the cecum secondary to pancolitis. The findings are unchanged compared to previous examinations. This was biopsied for histology and CMV. Patent end-to-side colo-colonic anastomosis. The examined portion of the ileum was normal. This was biopsied. Past Medical/Surgical History Medical Problems: (1) Cough Status: Acute (2) Dehydration Status: Acute (3) Dizziness Status: Acute (4) Lower extremity cellulitis Status: Acute Family History Blood clots Social History Smoking Status: Never Smoker Alcohol Use: none, occasionally Drug Use: none Marital Status: Housing Status: lives with family Occupation Status: employed Allergies Coded Allergies: Ciprofloxacin (Verified Allergy, Intermediate, IV DOSE-BURNED UP ARM, 07/08) Iodinated Diagnostic Agents (Verified Allergy, Unknown, CAT SCAN DYE-RASH ITCHING, 07/08/16) Current Medications Home Meds and Scripts Medications Dose Route/Sig Max Daily Dose Days Date Category Dose Instructions Zofran (Ondansetron HCl) 4 Mg Tab 4 Mg PO Q6H PRN 07/04/16 Rx Flonase Allergy Relief (Fluticasone Propionate (Nasal)) 50 Mcg/Act Spr 2 Sprays FREDIS QPM PRN 07/03/16 Reported Symbicort 160/4.5 Inhaler (Budesonide/Formoterol Fumarate) 120 Puffs/ Aero 2 Puffs PO BID 07/03/16 Reported CeleBREX (Celecoxib) 200 Mg Cap 200 Mg PO BID 08/19/15 Reported Coumadin (Warfarin Sod) 2.5 Mg Tab 2.5 Mg PO 6XWK 10/14/14 Rx [id number] Coumadin (Warfarin Sod) 2.5 Mg Tab 5 Mg PO WK 10/14/14 Rx ONLY SAT EVENING Review of Systems Constitutional: No chills, No fever Respiratory: No cough, No shortness of breath Cardiac: No chest pain, No edema Abdomen: + diarrhea (typically emptys ostomy bag 2 times daily, has emptied three time this morning), No GI bleeding, No constipation, No nausea, No pain, No vomiting Physical Exam Date Time Temp Pulse Resp B/P Pulse Ox O2 Delivery O2 Flow Rate FiO2 07/08/16 08:00 36.6 80 20 126/80 98 Room Air 07/08/16 07:13 36.6 80 20 126/80 98 Room Air 07/08/16 06:45 84 20 131/89 97 07/08/16 06:03 89 20 117/58 98 Room Air 07/08/16 04:12 72 20 135/68 99 Room Air 07/08/16 02:09 80 18 129/71 100 Room Air 07/08/16 00:39 37.0 84 18 156/73 97 Room Air General Appearance: no apparent distress Eyes: PERRL ENT: hearing grossly normal Neck: supple, trachea midline Respiratory/Chest: lungs clear, normal breath sounds, no respiratory distress, no accessory muscle use Cardiovascular: regular rate, rhythm, no edema, no gallop, no JVD, no murmur Abdomen: normal bowel sounds, non tender, soft, + pertinent finding (ostomy bag LLQ, stool is liquid an brown, no black/bloody ) Neurologic/Psych: alert, normal mood/affect, oriented x 3 Skin: normal color, no jaundice, warm/dry Laboratory Results Last 24 Hours Test 07/08/16 01:05 07/08/16 07:35 White Blood Count 7.54 K/uL Red Blood Count 5.23 M/uL Hemoglobin 14.2 g/dL Hematocrit 41.4 % Mean Corpuscular Volume 79.2 fL Mean Corpuscular Hemoglobin 27.2 pg Mean Corpuscular Hemoglobin Concent 34.3 g/dl Platelet Count 175 K/uL Mean Platelet Volume 9.0 fL Neutrophils (%) (Auto) 76.1 % Lymphocytes (%) (Auto) 13.8 % Monocytes (%) (Auto) 7.0 % Eosinophils (%) (Auto) 2.5 % Basophils (%) (Auto) 0.3 % Neutrophils # (Auto) 5.74 K/uL Lymphocytes # (Auto) 1.04 K/uL Monocytes # (Auto) 0.53 K/uL Eosinophils # (Auto) 0.19 K/uL Basophils # (Auto) 0.02 K/uL RDW Standard Deviation 41.4 fL RDW Coefficient of Variation 14.4 % Immature Granulocyte % (Auto) 0.3 % Immature Granulocyte # (Auto) 0.02 K/uL Prothrombin Time 30.9 SECONDS Prothromb Time International Ratio 2.8 Activated Partial Thromboplast Time 36.2 SECONDS Partial Thromboplastin Ratio 1.4 Sodium Level 143 mmol/L 143 mmol/L Potassium Level 3.9 mmol/L 4.0 mmol/L Chloride Level 106 mmol/L 110 mmol/L Carbon Dioxide Level 25 mmol/L 24 mmol/L Anion Gap 12.0 mmol/L 9.0 mmol/L Blood Urea Nitrogen 23 mg/dl 19 mg/dl Creatinine 1.20 mg/dl 1.00 mg/dl Est Creatinine Clear Calc Drug Dose 52.1 ml/min 62.0 ml/min Estimated GFR () 57.3 71.4 Estimated GFR (Non- 49.4 61.6 BUN/Creatinine Ratio 19.3 18.6 Random Glucose 140 mg/dl 97 mg/dl Calcium Level 9.2 mg/dl 8.2 mg/dl Magnesium Level 1.9 mg/dl 1.7 mg/dl Total Bilirubin 0.3 mg/dl Aspartate Amino Transf (AST/SGOT) 24 U/L Alanine Aminotransferase (ALT/SGPT) 30 U/L Alkaline Phosphatase 85 U/L Total Protein 8.0 gm/dl Albumin 3.6 gm/dl Globulin 4.4 gm/dl Albumin/Globulin Ratio 0.8 Phosphorus Level 2.6 mg/dl Impression Patient is a 61 year old female with high output ostomy output. Differentials include infectious colitis, viral gastroenteritis, etc. Labs stable and without elevated WBC. Plan IV NSS Stool culture including O&P and c.diff GI ok for clear liquids. Zofran as needed Further recommendations pending stools. I have seen and examined the patient with Lilibeth Culver whose note reflects our findings and plan.
[2016-07-08] MEDS ORDERED: MAGNESIUM SULFATE 1GM / D5W 1 GM in PREMIXED IN D5W 100 ML IV ONE (13:15)
[2016-07-08 15:54] VITALS: BP 129/80; PULSE 67; TEMP 36.5; O2SAT 97
[2016-07-08] MEDS ORDERED: WARFARIN SOD 2.5 MG TAB PO SCH (16:00)
[2016-07-08 16:30] VITALS: O2SAT 97
[2016-07-08 23:57] VITALS: BP 117/72; PULSE 62; TEMP 36.5; O2SAT 97
--- NOTE | 2016-07-09 07:12 | EMERGENCY ROOM VISIT NOTE ---
History First contact with patient: 00:45 Chief Complaint: NAUSEA Stated Complaint: HIGH OUTPUT ILEOSTOMY Nursing Triage Summary: Per pt, she feels she is nauseated and lossing fluids too quickly through ostomy. 500cc out since 10pm yesterday and reports she had an additional 400cc out in ED this morning. Denies vomiting. Pt admitted last week friday for same thing and d/c . Tx with IV fluids. Pt states "I am not that dehydrated yet, but I wanted to come before it got bad." History of Present Illness The patient is a 61 year old female who presents to the Emergency Room with complaints of nausea and high output from her ostomy. The patient has a history of Crohn's disease in remission, but did require a partial colectomy chronic ostomy bag. The patient was seen for dehydration and high output ostomy earlier this week, where she was admitted, and given hydration. At the time of discharge from the hospital she felt well. The patient reports about 3 hours ago she had 500 mL of output from her ostomy. She then had an additional output of 300-400 mL per hour for the next 2 hours, prompting her to return to the ER. The patient does not have fever or chills. She is without abdominal or chest pains. She had stool cultures that were negative a few days ago. The patient is concern for dehydration and rates her discomfort a 0/10. Review of Systems More than 10 systems were reviewed and otherwise negative with the exception of history of present illness. Past Medical/Surgical History Medical Problems: (1) Colectomy (2) Deep venous thrombosis (3) Dehydration (4) High output ileostomy (5) History of - section (6) History of appendectomy (7) History of repair of inguinal hernia (8) Incisional hernia repair (9) Menopause present (10) Partial colectomy (11) Plantar fascial fibromatosis (12) SICCA SYNDROME Family History Blood clots Social History Smoking Status: Never Smoker Alcohol Use: none, occasionally Drug Use: none Marital Status: Housing Status: lives with family Occupation Status: employed Current/Historical Medications Scheduled Budesonide/Formoterol Fumarate (Symbicort 160/4.5 Inhaler), 2 PUFFS PO BID Celecoxib (CeleBREX), 200 MG PO BID Warfarin Sod (Coumadin), 5 MG PO WK Warfarin Sod (Coumadin), 2.5 MG PO 6XWK Scheduled PRN Fluticasone Propionate (Nasal) (Flonase Allergy Relief), 2 SPRAYS FREDIS QPM PRN for Nasal Congestion Ondansetron Hcl (Zofran), 4 MG PO Q6H PRN for Nausea Allergies Coded Allergies: Ciprofloxacin (Verified Allergy, Intermediate, IV DOSE-BURNED UP ARM, 07/08) Iodinated Diagnostic Agents (Verified Allergy, Unknown, CAT SCAN DYE-RASH ITCHING, 07/08/16) Physical Exam Vital Signs Date Time Temp Pulse Resp B/P Pulse Ox O2 Delivery O2 Flow Rate FiO2 07/08/16 04:12 72 20 135/68 99 Room Air 07/08/16 02:09 80 18 129/71 100 Room Air 07/08/16 00:39 37.0 84 18 156/73 97 Room Air Pain Rating (0-10): 0 Physical Exam VITALS: Vitals are noted on the nurse's note and reviewed by myself. Vital signs stable. GENERAL: Well-developed, well-nourished, white female, who is in no acute distress and resting comfortably. Patient is cooperative with the examination. HEAD: Normocephalic atraumatic. HEART: Regular rate and rhythm without murmurs gallops or rubs. LUNGS: Clear to auscultation bilaterally without wheezes, rales or rhonchi. No retractions or accessory muscle use. ABDOMEN: Positive normal bowel sounds x 4. Soft, nontender, without masses or organomegaly. No guarding or rebound tenderness. MUSCULOSKELETAL: No muscle atrophy, erythema, or edema noted. Full range of motion without joint tenderness in all extremities. Medical Decision & Procedures Laboratory Results 07/08/16 01:05 Red Blood Count 5.23, Mean Corpuscular Volume 79.2, Mean Corpuscular Hemoglobin 27.2, Mean Corpuscular Hemoglobin Concent 34.3, Mean Platelet Volume 9.0, Neutrophils (%) (Auto) 76.1, Lymphocytes (%) (Auto) 13.8, Monocytes (%) (Auto) 7.0, Eosinophils (%) (Auto) 2.5, Basophils (%) (Auto) 0.3, Neutrophils # (Auto) 5.74, Lymphocytes # (Auto) 1.04, Monocytes # (Auto) 0.53, Eosinophils # (Auto) 0.19, Basophils # (Auto) 0.02 Test 07/08/16 01:05 White Blood Count 7.54 K/uL (4.8-10.8) Red Blood Count 5.23 M/uL (4.2-5.4) Hemoglobin 14.2 g/dL (12.0-16.0) Hematocrit 41.4 % (37-47) Mean Corpuscular Volume 79.2 fL (80-100) Mean Corpuscular Hemoglobin 27.2 pg (25-34) Mean Corpuscular Hemoglobin Concent 34.3 g/dl (32-36) Platelet Count 175 K/uL (130-400) Mean Platelet Volume 9.0 fL (7.4-10.4) Neutrophils (%) (Auto) 76.1 % Lymphocytes (%) (Auto) 13.8 % Monocytes (%) (Auto) 7.0 % Eosinophils (%) (Auto) 2.5 % Basophils (%) (Auto) 0.3 % Neutrophils # (Auto) 5.74 K/uL (1.4-6.5) Lymphocytes # (Auto) 1.04 K/uL (1.2-3.4) Monocytes # (Auto) 0.53 K/uL (0.11-0.59) Eosinophils # (Auto) 0.19 K/uL (0-0.5) Basophils # (Auto) 0.02 K/uL (0-0.2) RDW Standard Deviation 41.4 fL (36.4-46.3) RDW Coefficient of Variation 14.4 % (11.5-14.5) Immature Granulocyte % (Auto) 0.3 % Immature Granulocyte # (Auto) 0.02 K/uL (0.00-0.02) Prothrombin Time 30.9 SECONDS (9.0-12.0) Prothromb Time International Ratio 2.8 (0.9-1.1) Activated Partial Thromboplast Time 36.2 SECONDS (21.0-31.0) Partial Thromboplastin Ratio 1.4 Total Bilirubin 0.3 mg/dl (0.2-1) Aspartate Amino Transf (AST/SGOT) 24 U/L (15-37) Alanine Aminotransferase (ALT/SGPT) 30 U/L (12-78) Alkaline Phosphatase 85 U/L (45-117) Total Protein 8.0 gm/dl (6.4-8.2) Albumin 3.6 gm/dl (3.4-5.0) Globulin 4.4 gm/dl (2.5-4.0) Albumin/Globulin Ratio 0.8 (0.9-2) Medications Administered Medications (Trade) Dose Ordered Sig/Jimmy Route Start Time Stop Time Status Last Admin Dose Admin Sodium Chloride 1,000 ml @ 999 mls/hr Q1H1M ONCE IV 07/08/16 01:15 07/08/16 02:15 DC 07/08/16 01:18 999 MLS/HR Sodium Chloride (Nss 1000ml) 1,000 ml @ 999 mls/hr Q1H1M ONCE IV 07/08/16 01:15 07/08/16 02:15 DC 07/08/16 01:18 999 MLS/HR Ondansetron HCl 4 mg 4 mg NOW STAT IV 07/08/16 01:02 07/08/16 01:04 DC 07/08/16 01:18 4 MG Promethazine HCl 12.5 mg/Sodium Chloride 50.5 ml @ 204 mls/hr NOW STAT IV 07/08/16 04:14 07/08/16 04:28 DC 07/08/16 04:45 204 MLS/HR Sodium Chloride (Nss 1000ml) 1,000 ml @ 250 mls/hr Q4H ONCE IV 07/08/16 04:45 07/08/16 07:11 DC 07/08/16 04:45 250 MLS/HR ED Course Physical exam and history were performed. Nursing notes and EMR were reviewed. Patient appears to have reports of high output ostomy for the past 3 hours. She has had greater than 1 L of output in this time. On examination the patient does appear well. IV access was established and labs were obtained. She was hydrated with 2 L of normal saline and given 4 mg IV Zofran. The patient's blood work is as above and was reviewed. She does not have a significantly elevated white blood cell count, gross anemia, bandemia, or significant electrolyte imbalance. The patient was monitored for several hours here in the emergency department. Nursing and watched her output from the ileostomy very closely. The first hour the patient at 75 mL output, and her second hour here she had 125 mL. The patient was starting to feel well, but then had output of 425 mL followed by 850 mL of emesis. She was given IV Phenergan and another liter of normal saline. The case was discussed with my attending physician, Dr. Vogt, who also an apparently evaluated the patient. We have concern the patient has a high output ostomy with vomiting that will cause her severe dehydration. The case was discussed with the on-call hospitalist, who agreed to evaluate the patient here in the ER. Please see their dictation for further patient course, plan, and disposition. The chart was completed utilizing [employer] Speech Voice Recognition Software. Grammatical errors, random word insertions, pronoun errors, and incomplete sentences are an occasional consequence of this system due to software limitations, ambient noise, and hardware issues. Any formal questions or concerns about the content, text, or information contained within the body of this dictation should be directly addressed to the provider for clarification. . Medical Decision Differential diagnosis: Etiologies such as gastroenteritis, food borne illness, infections, appendicitis , diverticulitis, inflammatory bowel disease, obstruction, GI bleed, biliary pathology, as well as others were entertained. Impression Primary Impression: High output ileostomy Additional Impression: Dehydration Departure Information Dispostion Still a Patient Referrals Mary Arnett C.R.N.P. (PCP) Forms HOME CARE DOCUMENTATION FORM, IMPORTANT VISIT INFORMATION Patient Instructions My [facility] Problem Qualifiers
[2016-07-09 07:36] VITALS: BP 116/72; PULSE 71; TEMP 36.5; O2SAT 99
[2016-07-09] MEDS: CHOLESTYRAMINE LIGHT 4 GM PKT PO SCH (09:04)
[2016-07-09] MEDS: CeleBREX 200 MG CAP PO SCH (09:05)
[2016-07-09] MEDS: BUDESONIDE/FORMOTEROL FUMARATE 160/4.5 60 PUFFS/INHALER INH SCH (09:05)
[2016-07-09 10:38] LABS: INR 3.5 (0.9-1.1); PROTHROMBIN TIME (PATIENT) 39.9 SECONDS (9.0-12.0)
--- NOTE | 2016-07-09 10:45 | Gastroenterology Progress Note ---
Progress Note Date of Service: Jul 09, 2016 Subjective Pt evaluation today including: conversation w/ patient, physical exam, chart review, lab review Pt was seen and examined this morning. She reports she is feeling much better. No longer feels dehydrated. No longer having increased ostomy output. Reports her output is now back down to her baseline. Tolerated dinner and breakfast well. No fever, chills, chest pain, SOB, abdominal pain, nausea, vomiting black/ bloody stools. C.diff negative Culture pending Giardia pending Review of Systems Constitutional: No chills, No fever Respiratory: No cough, No shortness of breath Cardiac: No chest pain, No edema Abdomen: No GI bleeding, No constipation, No diarrhea, No nausea, No pain, No vomiting Skin: No rash Medications Current Inpatient Medications Medications (Trade) Dose Ordered Sig/Jimmy Route Start Time Stop Time Status Last Admin Dose Admin Acetaminophen (Tylenol Tab) 650 mg Q4H PRN PO 07/08/16 05:45 08/07/16 05:44 Al Hydrox/Mg Hydrox/Simethicone (Maalox Max Susp) 15 ml Q4H PRN PO 07/08/16 05:45 08/07/16 05:44 Magnesium Hydroxide (Milk Of Magnesia Susp) 30 ml Q6H PRN PO 07/08/16 05:45 08/07/16 05:44 Polyethylene (Miralax Powder Packet) 17 gm DAILY PRN PO 07/08/16 05:45 08/07/16 05:44 Ondansetron HCl (Zofran Inj) 4 mg Q6H PRN IV 07/08/16 05:45 08/07/16 05:44 Budesonide/ Formoterol Fumarate (Symbicort 160/ 4.5 Inh) 2 puffs BID INH 07/08/16 08:00 08/07/16 08:59 07/09/16 09:05 2 PUFFS Celecoxib (CeleBREX CAP) 200 mg BID PO 07/08/16 08:00 08/07/16 08:59 07/09/16 09:05 200 MG Fluticasone Propionate (Flonase Nasal [place]) 2 sprays QPM PRN FREDIS 07/08/16 05:45 08/07/16 05:44 Warfarin Sodium (Coumadin Tab) 2.5 mg SuMoTuWeThFr@1600 PO 07/08/16 16:00 08/07/16 15:59 07/08/16 16:39 2.5 MG Warfarin Sodium (Coumadin Tab) 5 mg Sa@1600 PO 07/13/16 16:00 08/12/16 15:59 Cholestyramine Resin (Questran Powder Light) 4 gm BID@10,22 PO 07/08/16 10:00 08/07/16 09:59 07/09/16 09:04 4 GM Miscellaneous (Iv Fluids Completed) 1 ea PRN PRN N/A 07/08/16 06:30 07/08/17 06:29 Phenol (Chloraseptic 1.4% [place]) 1 sprays DAILY PRN MT 07/08/16 10:30 08/07/16 10:29 Objective Vital Signs Date Time Temp Pulse Resp B/P Pulse Ox O2 Delivery O2 Flow Rate FiO2 07/09/16 07:36 36.5 71 20 116/72 99 Room Air 07/09/16 00:01 Room Air 07/08/16 23:57 36.5 62 16 117/72 97 Room Air 07/08/16 16:30 97 Room Air 07/08/16 15:54 36.5 67 20 129/80 97 Room Air Physical Exam General Appearance: no apparent distress (patient is OOB in chair and reading the paper) Eyes: PERRL ENT: hearing grossly normal Neck: supple, trachea midline Respiratory/Chest: lungs clear, normal breath sounds, no respiratory distress, no accessory muscle use Cardiovascular: regular rate, rhythm, no gallop, no JVD Abdomen: normal bowel sounds, non tender, soft, no organomegaly, + pertinent finding (ostomy in place, no erythema or warmth to area. output is loose, brown , no black/bloody stool) Neurologic/Psych: alert, normal mood/affect, oriented x 3 Skin: normal color, no jaundice, warm/dry, no rash Laboratory Results Last 24 Hours Test 07/08/16 11:50 07/09/16 10:15 Prothrombin Time 39.9 SECONDS Prothromb Time International Ratio 3.5 Assessment and Plan Patient is a 61 year old female with high output ostomy output. Differentials include infectious colitis, viral gastroenteritis, etc. Labs stable and without elevated WBC. Today her output is back to normal and she is feeling a lot better. C.diff - Stool cultures pending Diet is tolerated Zofran as needed Keep follow up with Dr. Bhanu fernando No GI contraindication to discharge. Suggest follow up with PCP after discharge.
[2016-07-09 11:12] LABS: BUN/CREATININE RATIO 8.8 (10-20); CALCIUM 9.2 mg/dl (8.5-10.1); CREATININE 1.2 mg/dl (0.60-1.20); MAGNESIUM 2.2 mg/dl (1.8-2.4); POTASSIUM 3.7 mmol/L (3.5-5.1)
[2016-07-09] MEDS ORDERED: VTMD PO (14:13)
[2016-07-09] MEDS ORDERED: QSTP PO (14:13)
--- NOTE | 2016-07-09 14:22 | Discharge Instructions ---
Discharge Instructions Date of Service Jul 09, 2016. Admission Reason for Admission: High Output Ileostomy Discharge Discharge Diagnosis / Problem: High Output from Ileostomy Discharge Goals Goal(s): Learn about illness, Diagnostic testing, Therapeutic intervention Activity Recommendations Activity Limitations: resume your previous activity . Instructions / Follow-Up Instructions / Follow-Up From Dr. Alatorre - 1. for high output from the ileostomy - * take cholestyramine powder twice daily * may use immodium [id number] as needed for ongoing high output/liquid stool * if your output fails to improve or worsens please contact Dr. Drummond's office right away 2. vitamin D deficiency - * take ergocalciferol 59243 unit capsule twice a week for 8 weeks * have your vitamin D level repeated at the conclusion of your course 3. diet - * for the rest of today may increase to full liquids - this includes everything you were served at [facility] PLUS dairy products and cream-based soups * tomorrow may advance to low fiber diet as tolerated * plenty of fluids over the next few days 4. please see your family doctor within 1 week 5. coumadin - * HOLD your coumadin TODAY * resume your coumadin TOMORROW * have your INR checked this or Friday Current Hospital Diet Patient's current hospital diet: Clear Liquid Diet Discharge Diet Recommended Diet: Full Liquid Diet (advance diet over the next 24 hours to low fiber diet ) Procedures Procedures Performed: x-ray of abdomen - normal. Pending Studies Studies pending at discharge: yes List of pending studies: bacterial stool culture - thus far negative but final result pending. giardia antigen stool test. Medical Emergencies . Who to Call and When: Medical Emergencies: If at any time you feel your situation is an emergency, please call 911 immediately. . Non-Emergent Contact Non-Emergency issues call your: Underwriting Operations Manager Call Non-Emergent contact if: temperature is above 100.5, your pain is not controlled, your pain is worsening, your pain is unusual for you, your pain is concerning you, you have any medication questions Your ostomy output worsens or fails to improve (1500cc a day or more consistently) despite use of cholestyramine and/or immodium. . . "Provider Documentation" section prepared by Isaac Alatorre. VTE Core Measure Inpt VTE Proph given/why not?: Warfarin (Coumadin)
[2016-07-09 14:24] VITALS: BP 116/72; PULSE 71; TEMP 36.5; O2SAT 99
[2016-07-10 15:31] LABS: O&P GIARDIA AG NOT DETECTED (NOT DETECTED)
[2016-07-13] MEDS ORDERED: WARFARIN SOD 5 MG TAB PO SCH (16:00)
--- NOTE | 2016-07-17 23:38 | Discharge Summary ---
Discharge Summary Date of Service Jul 17, 2016. Discharge Summary Admission Date: Jul 08, 2016 at 05:27 Discharge Date: Jul 09, 2016 Discharge Disposition: Home Principal Diagnosis: high output from ostomy Problems/Secondary Diagnoses: 1. Crohn's disease s/p total proctocolectomy in 2011 2. ileostomy creation 2011 3. h/o DVT on chronic coumadin 4. h/o SVT 5. vitamin D deficiency 6. hypomagnesemia - resolved Immunizations: Have You Had Influenza Vaccine: No History of Tetanus Vaccine?: Yes Tetanus Immunization Date: Apr 14, 2007 History of Pneumococcal: No History of Hepatitis B Vaccine: Yes Hepatitis Immunization Date: Apr 14, 2009 Consultations: gastroenterology - [facility] GI Medication Reconciliation New Medications: Ergocalciferol (Vitamin D) 50,000 Interunit Cap 62118 UNITS PO twice weekly, #8 CAP 1 Refill Cholestyramine (Cholestyramine Light) 4 Gm Pack 4 GM PO BID@10,22, #60 PKT 2 Refills Continued Medications: Budesonide/Formoterol Fumarate (Symbicort 160/4.5 Inhaler) 120 Puffs/ Aero 2 PUFFS PO BID Celecoxib (CeleBREX) 200 Mg Cap 200 MG PO BID, CAP Fluticasone Propionate (Nasal) (Flonase Allergy Relief) 50 Mcg/Act Spr 2 SPRAYS FREDIS QPM PRN for Nasal Congestion Ondansetron Hcl (Zofran) 4 Mg Tab 4 MG PO Q6H PRN for Nausea, #20 TAB Warfarin Sod (Coumadin) 2.5 Mg Tab 5 MG PO WK, #10 TAB ONLY SAT EVENING Warfarin Sod (Coumadin) 2.5 Mg Tab 2.5 MG PO 6XWK, #30 TAB [id number] Referrals At Discharge Follow up Referrals: [facility] Referral - Please Call For Appointment with Kolton Drummond M.D. Discharge Exam Physical Exam: General Appearance: no apparent distress ENT: pharynx normal Neck: no JVD Respiratory/Chest: lungs clear, no respiratory distress, no accessory muscle use Cardiovascular: regular rate, rhythm, no gallop, no murmur, normal peripheral pulses Abdomen / GI: normal bowel sounds, non tender, soft, no organomegaly, + pertinent finding (ileostomy in place with liquid stool in the bag) Extremities: no pedal edema Neurologic/Psychiatric: alert, oriented x 3 Hospital Course HISTORY OF PRESENT ILLNESS: This is a 61yo female who presents with a 1 day history of high output from her ostomy. She was recently admitted for similar complaints. At the time she was treated with IVFs and anti-nausea meds. Her diarrhea improved and she was discharged soon after. She reports that she remained asymptomatic for 4-5 days after until yesterday when her stools were watery again and green. She did have exposure to her grand kids who had some diarrhea in the last week. She denies antibiotic use. While in the ED for the first 3 hours, she put out approximately 1 L of watery stools and had about 875 ml of emesis. Denies melena, hematochezia, hematemesis, chest pain, shortness of breath, fevers, chills, dizziness. She reports having tried the protocol given by her GI doc for high output- combination of Gatorade, water and soda- but there was no improvement. HOSPITAL COURSE: During the patient's brief stay her ileostomy output improved with use of cholestyramine powder twice daily. Electrolytes were corrected and she was hydrated. She was able to tolerate a clear liquid diet prior to discharge. She was seen in consult by Neeta DESIR who recommended ongoing usage of the bile acid sequestrant following discharge. C. diff toxin, stool culture, and giardia antigen were ALL NEGATIVE. She was counseled that if her output still remained problematic she could also take immodium in addition to the cholestyramine. GI follow-up with Dr. Vladimir Drummond was advised to ensure resolution of this issue. All other medical problems remained stable while here. Discharge INR was 3.5. Finally, a vitamin D level was checked and found to be low at 12.9. An 8-week course of ergocalciferol replacement was recommended. Total Time Spent: Greater than 30 minutes This includes examination of the patient, discharge planning, medication reconciliation, and communication with other providers. Discharge Instructions Please refer to the electronic Patient Visit Report (Discharge Instructions) for additional information. Follow-Up 1. see Ms. Arnett, PCP, within [address] Drummond, Neeta DESIR, within 2 weeks Additional Copies To Kolton Drummond M.D.; Mary Arnett C.R.N.P.
[2016-11-15] MEDS ORDERED: FLUT1INH INH (13:12)
[2016-11-15] MEDS ORDERED: WARF5TAB7 PO (13:12)
[2016-11-15] MEDS ORDERED: WARF2.5T8 PO (13:12)
== END 2016-07-09 14:30 | disposition home or self-care (01) ==
LOC: ENRESERVTM → ENRESERVDT → C.EDB 00:38 → C.4E 05:27
PROVIDERS: ADMIT Student in an Organized Health Care Education/Training Program; ATTEND Internal Medicine
DX: K94.19 Other complications of enterostomy (principal); E86.0 Dehydration; Z86.718 Personal history of other venous thrombosis and embolism; Z90.49 Acquired absence of other specified parts of digestive tract; Z83.2 Family history of diseases of the blood and blood-forming organs and certain disorders involving the immune mechanism; Z79.01 Long term (current) use of anticoagulants; Z79.899 Other long term (current) drug therapy

== ENCOUNTER → 2016-08-26 | Outpatient (CLI) | payer OTHER ==
[~2016-08-26] MED LIST changes: +ACET-1256 PO; +ENOX40IN SQ; +FLUT1INH INH; +OXYSR10 PO; +QSTP PO; +RXC5 PO; +SNK PO; +VTMD PO; +WARF2.5T8 PO; +WARF5TAB7 PO
== END | disposition home or self-care (01) ==
LOC: C.LAB1850 13:17
PROVIDERS: ATTEND Nurse Practitioner Adult Health
DX: E55.9 Vitamin D deficiency, unspecified (principal); Z51.81 Encounter for therapeutic drug level monitoring; Z79.01 Long term (current) use of anticoagulants

== ENCOUNTER → 2016-09-23 | Outpatient (CLI) | payer OTHER | END | disposition home or self-care (01) | LOC: C.LABSPEC 17:34 | PROVIDERS: ATTEND Podiatrist Foot & Ankle Surgery | DX: B07.9 Viral wart, unspecified (principal) ==

== ENCOUNTER → 2016-11-12 | Outpatient (CLI) | payer OTHER ==
[2016-11-12 16:38] LABS: BASO % 0.2 %; BASO ABS # 0.01 K/uL (0-0.2); COMPLETE YES; EOS % 2.3 %; HEMATOCRIT 39.5 % (37-47); IG% 0.4 %; LYMPH % 13.4 %; LYMPH ABS # 0.69 K/uL (1.2-3.4); MEAN CELL VOLUME 82.8 fL (80-100); MEAN CORPUSCULAR HEMOGLOBIN 26.8 pg (25-34); MEAN CORPUSCULAR HGB CONC 32.4 g/dl (32-36); MEAN PLATELET VOLUME 9.5 fL (7.4-10.4); MONO % 7.2 %; NEUT % 76.5 %; PLATELET COUNT 211 K/uL (130-400); RED BLOOD COUNT 4.77 M/uL (4.2-5.4); WHITE BLOOD COUNT 5.14 K/uL (4.8-10.8)
[2016-11-12 17:10] LABS: ALT/SGPT 27 U/L (12-78); AST/SGOT 20 U/L (15-37)
== END | disposition home or self-care (01) ==
LOC: C.LAB1850 15:11
PROVIDERS: ATTEND Internal Medicine Rheumatology
DX: M35.00 Sjogren syndrome, unspecified (principal); Z51.81 Encounter for therapeutic drug level monitoring; Z79.899 Other long term (current) drug therapy

== ENCOUNTER → 2016-12-06 | Outpatient (CLI) | payer OTHER ==
[~2016-12-06] MED LIST changes: -CMD/25 PO; -FLUT0.15 NAE; -ONDA4TAB46 PO; -QSTP PO; -SYMIN160 PO; -VTMD PO
[2016-12-06 17:03] LABS: BLOOD UREA NITROGEN 22 mg/dl (7-18); BUN/CREATININE RATIO 19.6 (10-20); CARBON DIOXIDE 28 mmol/L (21-32); CHLORIDE 107 mmol/L (98-107); GLUCOSE 131 mg/dl (70-99); POTASSIUM 4.1 mmol/L (3.5-5.1); SODIUM 140 mmol/L (136-145)
== END | disposition home or self-care (01) ==
LOC: C.LABBC 13:04
PROVIDERS: ATTEND Nurse Practitioner Adult Health
DX: I10 Essential (primary) hypertension (principal)

== ENCOUNTER 2016-12-18 06:23 | Inpatient (IN) | payer OTHER ==
--- NOTE | 2016-11-15 13:47 | PAT Medication Instructions ---
Service Date Nov 15, 2016. Current Home Medication List Celecoxib (CeleBREX), 200 MG PO BID Fluticasone Furoate-Vilanterol (Breo Ellipta), 1 INHA INH QAM Warfarin Sod (Aprto), 2.5 MG PO 6XWEEK Warfarin Sod (Aprtoven), 5 MG PO SATURDAYS Medication Instructions For Your Scheduled Surgery - Instructions to be given by prescribing physician: Warfarin Sod (Aprtoven), 2.5 MG PO 6XWEEK Warfarin Sod (Aprto), 5 MG PO SATURDAYS - Hold the following medications the morning of surgery: Celecoxib (CeleBREX), 200 MG PO BID (otherwise okay to continue per surgeon) - Take the following medications the morning of surgery: Fluticasone Furoate-Vilanterol (Breo Ellipta), 1 INHA INH QAM *Nothing to eat or drink after midnight* If you have any questions please call us at [phone] or [phone] or [phone]
--- NOTE | 2016-11-15 14:14 | DIAGNOSTIC IMAGING REPORT ---
CHEST 2 VIEWS ROUTINE CLINICAL HISTORY: 61 years-old Female presenting with preoperative assessment. TECHNIQUE: PA and lateral views of the chest were obtained. COMPARISON: 04/25/2016. FINDINGS: Cardiomediastinal silhouette normal. Minimal persistent pelvic opacity in the left lung base/lingula, likely scarring. Lungs and pleural spaces otherwise clear. Degenerative changes of the thoracic spine. Upper abdomen normal. IMPRESSION: 1. No acute cardiopulmonary disease. Electronically signed by: Felipe Bermudez M.D. 11/15/2016 2:12 PM Dictated Date/Time: 11/15/2016 2:12 PM
[2016-11-15 14:36] LABS: BUN/CREATININE RATIO 21.9 (10-20); CALCIUM 9.6 mg/dl (8.5-10.1); CREATININE 1.3 mg/dl (0.60-1.20); POTASSIUM 4.1 mmol/L (3.5-5.1)
[2016-11-15 14:48] LABS: INR 1.4 (0.9-1.1); PARTIAL THROMBOPLASTIN RATIO 1.4; PROTHROMBIN TIME (PATIENT) 15.7 SECONDS (9.0-12.0)
[2016-11-15 14:55] LABS: URINE APPEARANCE CLEAR (CLEAR); URINE BILIRUBIN NEG (NEG); URINE COLOR YELLOW; URINE EPITHELIAL CELL AUTO 20-30 /lpf (0-5); URINE NITRITE NEG (NEG); URINE SPECIFIC GRAVITY 1.028 (1.000-1.030); UROBILINOGEN NEG (NEG); ZZUR CULT IF INDIC CLEAN CATCH NO
[2016-11-15 14:57] LABS: MANUAL MICROSCOPIC REQUIRED? NO; REVIEW REQ? NO
[2016-11-16 08:05] LABS: ESTIMATED AVERAGE GLUCOSE 137 mg/dl; HA1C FLAG Normal (Normal)
--- NOTE | 2016-12-17 21:17 | HISTORY & PHYSICAL EXAMINATION ---
DATE OF ADMISSION: 12/17/2016 CHIEF COMPLAINT: Chronic right knee pain. HISTORY OF PRESENT ILLNESS: This is a 61-year-old female patient of Dr. Sidhu, complaining of chronic right knee pain, longstanding, now progressively getting worse. The patient has failed conservative treatment including, intraarticular injections, Celebrex. The patient has increased pain with weightbearing activities and her pain does interfere with her activities of daily living. PAST MEDICAL HISTORY: Chronic cough, COPD, sleep apnea, history of blood clots, rheumatoid arthritis, osteoarthritis, sciatica, and obesity. SOCIAL HISTORY: Nonsmoker, nondrinker. PAST SURGICAL HISTORY: Right knee surgery, x3. She had an ileostomy, hernia repair and appendectomy. FAMILY HISTORY: Noncontributory. REVIEW OF SYSTEMS: The patient complains of chronic right knee pain, otherwise denies any shortness of breath, chest pain, nausea, vomiting or any other joint complaints. MEDICATIONS: Include, Coumadin, Celebrex and pilocarpine. Dosages will be provided on admission. ALLERGIES: INCLUDE, IV CIPRO, AND IODINE DYE WITH CT CONTRAST. PHYSICAL EXAMINATION: GENERAL: Well-developed, well-nourished 61-year-old female, in no acute distress. She is alert and oriented x3 and pleasant. HEENT: Normocephalic, atraumatic. Extraocular motions are intact. Pupils are equal and reactive to light. HEART: Regular rate and rhythm, and no murmurs appreciated. LUNGS: Clear. ABDOMEN: Soft, nontender, bowel sounds present. EXTREMITIES: Right knee reveals limited range of motion of 0-100 degrees. She has a varus deformity. She has medial joint line tenderness with mild effusion. She has crepitation with passive range of motion. NEUROLOGIC: Neurovascularly, she is intact in her right lower extremity. DIAGNOSES: 1. Right knee end-stage osteoarthritis. 2. Chronic cough, chronic obstructive pulmonary disease. 3. Sleep apnea. 4. History of blood clots. 5. Rheumatoid arthritis. 6. Osteoarthritis. 7. Sciatica. 8. Obesity. PLAN: The patient was advised of her diagnosis. Indications, risks, benefits, and postop course have all been reviewed. The patient wishes to proceed with a right total knee arthroplasty. Necessary consent forms, preoperative testing and clearances will be obtained.
[~2016-12-18] VITALS: Ht 165.1 cm; Wt 83.6 kg
[2016-12-18] VITALS (7 sets, daily range): BP systolic 108–149; BP diastolic 65–84; PULSE 57–75; TEMP 36.4–36.6; O2SAT 97–100; Ht 165.1 cm; Wt 83.6 kg
[~2016-12-18 06:23] MED LIST changes: -ACET-1256 PO; +ACETAMINOPHEN 500 MG TAB PO SCH; +BUPIVACAINE 0.25% 30 ML VIAL ONE; +BUPIVACAINE 0.5 % 5 MG/1 ML PF 10ML VIAL ONE; +CEFAZOLIN 2000 MG/60 ML D5W 60 ML IV SCH; +CeleBREX 200 MG CAP PO SCH; +DEXAMETHASONE 4 MG TAB PO SCH; -ENOX40IN SQ; +EpINEphrine INJ 1MG/ML AMP 1 MG/ML AMP ONE; +FAMOTIDINE 20 MG TAB PO SCH; +GABAPENTIN 300 MG CAP PO SCH; +LACTATED RINGER'S 1000ML 1,000 ML IV SCH; +LACTATED RINGER'S 1000ML IV SCH; +LACTATED RINGER'S 500 ML IV SCH; +METOCLOPRAMIDE HCL 10 MG TAB PO SCH; -OXYSR10 PO; +ROPIVACAINE 5MG/ML 30 ML 150 MG, BUPIVACAINE/EPINEPHR 0.5% MPF 30 ML, KETOROLAC TROMETH... INFIL SCH; -RXC5 PO; -SNK PO
[2016-12-18] MEDS ORDERED: ACET-1256 PO (06:40)
[2016-12-18] MEDS ORDERED: ENOX40IN SQ ×2 (06:40→07:03)
[2016-12-18] MEDS ORDERED: POVIDONE-IODINE OP SOLN 30 ML BTL ONE (06:58)
[2016-12-18] MEDS ORDERED: ORTHO JOINT ANESTHETIC ONE (06:58)
[2016-12-18] MEDS ORDERED: BACITRACIN 50000 UNIT VIAL ONE (06:58)
[2016-12-18] MEDS ORDERED: KETAMINE HCL INJ 50 MG/ML 10 ML VIAL ONE (07:03)
[2016-12-18] MEDS ORDERED: MIDAZOLAM HCL 1 MG/ML 2ML VIAL ONE (07:03)
[2016-12-18] MEDS ORDERED: FENTANYL CITRATE INJ 50 MCG/1 ML 2 ML VIAL ONE (07:03)
--- NOTE | 2016-12-18 07:20 | History & Physical Bridge Note ---
H&P Re-Evaluation Bridge Note: I have examined the patient, reviewed the History & Physical and in the interval since the performance of the History & Physical I have noted the following changes of clinical significance: No changes noted
[2016-12-18 07:52] LABS: PROTHROMBIN TIME (PATIENT) 10.5 SECONDS (9.0-12.0)
[2016-12-18] MEDS ORDERED: EpHEDrine SULFATE INJ 50 MG/ML AMP IV PRN (08:00)
[2016-12-18] MEDS ORDERED: ONDANSETRON INJ 2 MG/ML 2 ML VIAL IV PRN ×2 (08:00→09:15)
[2016-12-18] MEDS ORDERED: ATROPINE SULFATE 0.1 MG/ML 5ML SYR IV PRN (08:00)
[2016-12-18] MEDS ORDERED: FENTANYL CITRATE INJ 50 MCG/1 ML 2 ML VIAL IV PRN (08:00)
[2016-12-18] MEDS ORDERED: LIDOCAINE HCL 2% 2 ML VIAL (20MG/ML) ONE (08:39)
[2016-12-18] MEDS ORDERED: PROPOFOL IV EMULSION 10 MG/ML 20 ML VIAL IV ONE (08:39)
[2016-12-18] MEDS ORDERED: SODIUM CHLORIDE 0.9% INJ 10 ML VIAL ONE (08:42)
[2016-12-18] MEDS ORDERED: DiphenhydrAMINE HCL 50 MG/ML VIAL IV PRN (09:15)
[2016-12-18] MEDS ORDERED: ZOLPIDEM TARTRATE 5 MG TAB PO PRN (09:15)
[2016-12-18] MEDS ORDERED: ALUMINUM/MAGNESIUM/SIMETH (MAALOX MAX) 30 ML UDC PO PRN (09:15)
[2016-12-18] MEDS ORDERED: MoRPHine SULFATE 2 MG/ML CARP IV PRN (09:15)
[2016-12-18] MEDS ORDERED: MAGNESIUM HYDROXIDE SUSP 30 ML UDC PO PRN (09:15)
[2016-12-18] MEDS ORDERED: ONDANSETRON INJ 2 MG/ML 2 ML VIAL ONE (09:25)
--- NOTE | 2016-12-18 09:32 | [facility] Operative Report ---
Operative Report Operative Date Dec 18, 2016. Pre-Operative Diagnosis Right Knee End-Stage Osteoarthritis Post-Operative Diagnosis same Procedure(s) Performed Right total knee arthroplasty Surgeon Tracy Fishing Rod Marker Surgeon(s) Clay Martell PA-C Estimated Blood Loss 5cc Findings End-stage DJD tricompartmental with [id number] medial compartment grade 3 patellofemoral joint DJD with varus knee Specimens A: Right Knee Bone and Tissue Drains 2 Hemovac Anesthesia spinal sedation and Orthomix Complication(s) None Disposition Recovery Room / PACU Indications End-stage DJD right knee status post prior left knee replacement and well Description of Procedure The patient was taken to the operating room and anesthetized under spinal anesthetic and sedation. Patient was placed supine on the the operating table. A pneumatic tourniquet was placed about the right upper thigh. The knee exam demonstrated a varus knee with lateral collateral ligament laxity and tight medial collateral ligament. An anterior longitudinal incision was made across the knee. Skin flaps were elevated. An incision was made into the medial retinaculum and extended up into the mid third of the quadriceps tendon and extended down to the tibial tubercle. Intra-articular findings demonstrated tricompartmental DJD [id number] medial compartment grade 3 wear patellofemoral joint. The knee was exposed by excising cruciate ligaments and menisci. The infrapatellar fat pad was resected. The fat pad over the anterior femur at the upper aspect of the articular surface was resected for placement of the component in that area. A subperiosteal peel lateral release was performed around the patella The Jean and nephew journey 2.0 posterior stabilized total knee arthroplasty system was utilized for the procedure. The custom femoral cutting guide was pinned in position. The distal femoral cut was made. The size 4, 5 in 1 cutting block was placed. The anterior posterior and chamfer cuts were made. The knee was extended and a free hand cut technique was performed to the patella. The patella with was measured and the width was reproduced using a 32 patella component. 3 drill holes are made for the patella component pegs. The tibia was then subluxed. The custom tibial cutting block was pinned in position and the proximal tibial cut was made with the oscillating saw. The size 3 tibial trial was externally rotated in line with the tibial tubercle and pinned in position. The punch for the stem was used and the collet was placed. Tibial trials were used for the insert. To balance the knee had to perform medial and posterior medial release and pie crust the MCL. The size 13 trial gave balanced ligaments through full range of motion. Patella tracking was assessed with range of motion. The patella tracked centrally. The trials were removed. The Orthomix anesthetic cocktail was injected per protocol. The cut bone surfaces and soft tissue were copiously irrigated with antibiotic solution with bacitracin. The final components were cemented with Simplex cement. The final components were Jean and nephew journey 2.0 size 4 right posterior stabilized Oxinium femoral component, 3 tibial baseplate, 13 mm high flex posterior stabilized polyethylene and 32 mm domed patella. While the cement cured the Betadine soak was not use due to an iodine allergy. When the cement cured the knee was copiously irrigated with pulsatile lavage antibiotic solution with bacitracin. 2 drains were brought out laterally connected to Hemovac. The quadriceps tendon and medial retinaculum were closed with interrupted [id number] #1 Vicryl sutures. The knee was taken through full range of motion and repair was secure. The subcutaneous tissues were closed with 2-0 Vicryl sutures. The skin was closed with mary. A sterile dressing was applied. The tourniquet was let down and the patient had good capillary refill to the extremity. The patient tolerated the procedure well. My physician architectural administrative assistant Clay ARIAS assisted in the procedure including prepping draping leg positioning soft tissue retraction instrument management and assisted in the closure ,dressings application and will participate in postoperative care the patient. I attest to the content of the Intraoperative Record and any orders documented therein. Any exceptions are noted below.
--- NOTE | 2016-12-18 09:58 | DIAGNOSTIC IMAGING REPORT ---
RIGHT KNEE 1 OR 2 VIEWS ROUTINE CLINICAL HISTORY: AP/LATERAL IN PACU RIGHT KNEE Right joint replacement COMPARISON: None. DISCUSSION: Total right knee replacement. Good contact between prosthetic and underlying bone. Surgical drains are in position IMPRESSION: Anatomic alignment status post total right knee replacement. The above report was generated using voice recognition software. It may contain grammatical, syntax or spelling errors. Electronically signed by: Goran Mosqueda M.D. 12/18/2016 9:57 AM Dictated Date/Time: 12/18/2016 9:56 AM
--- NOTE | 2016-12-18 11:42 | Medical Consult ---
Consultation Date of Consultation: Dec 18, 2016. Attending Physician: Hollis Molina M.D. History of Present Illness 61 y/o F Hx COPD, obesity, DVT, RA, crohns - ileostomy, OA - admitted 11/16 for elective R TKR. She has no specific complaints post-op. Pain is well controlled - denies CP, SOB, N/V, light head. Tolerating PO. Vitals have been stable post-op. Past Medical/Surgical History 1) Obesity 2) EVA - in chart - denies a diagnosis 3) RA 4) DVT - 200- - m=has been on Coumadin since 5) COPD 6) Crohn's disease - pt underwent an ileostomy for severe disease - states that disease has not recurred since then 7) Mild renal impairment on outpt labs Nov creat 1.3 Surgical C sxn x 3, ileostomy, hernia repair, L TKR Family History Blood clots Social History Smoking Status: Never Smoker Drug Use: none Marital Status: Housing Status: lives with family Occupation Status: employed Allergies Coded Allergies: Ciprofloxacin (Verified Allergy, Intermediate, IV DOSE-BURNED UP ARM, ) Iodinated Diagnostic Agents (Verified Allergy, Unknown, CAT SCAN DYE-RASH ITCHING, 12/18/16) Current Inpatient Medications Current Inpatient Medications Medications (Trade) Dose Ordered Sig/Jimmy Route Start Time Stop Time Status Last Admin Dose Admin Lactated Ringer's 1,000 ml @ 60 mls/hr [id number] IV 12/18/16 06:00 12/18/16 22:39 Cefazolin Sodium 60 ml @ 100 mls/hr PREOP IV 12/18/16 06:00 12/18/16 18:00 12/18/16 07:30 100 MLS/HR Acetaminophen (Tylenol Tab) 1,000 mg PREOP PO 12/18/16 06:00 12/18/16 18:00 12/18/16 06:58 1,000 MG Celecoxib (CeleBREX CAP) 200 mg PREOP PO 12/18/16 06:00 12/18/16 18:00 12/18/16 06:58 200 MG Dexamethasone (Decadron Tab) 8 mg PREOP PO 12/18/16 06:00 12/18/16 18:00 12/18/16 06:58 8 MG Famotidine (Pepcid Tab) 20 mg PREOP PO 12/18/16 06:00 12/18/16 18:00 12/18/16 06:57 20 MG Gabapentin (Neurontin Cap) 600 mg PREOP PO 12/18/16 06:00 12/18/16 18:00 12/18/16 06:58 600 MG Metoclopramide HCl (Reglan Tab) 10 mg PREOP PO 12/18/16 06:00 12/18/16 18:00 12/18/16 06:57 10 MG Lactated Ringer's 1,000 ml @ 15 mls/hr Q24H IV 12/18/16 06:00 12/19/16 05:59 Fentanyl Citrate (Fentanyl Inj) 25 mcg Q5M PRN IV 12/18/16 08:00 12/18/16 13:00 Ondansetron HCl (Zofran Inj) 4 mg ONE PRN IV 12/18/16 08:00 12/18/16 13:00 Ephedrine Sulfate (EpHEDrine SULFATE INJ) 5 mg Q5M PRN IV 12/18/16 08:00 12/18/16 13:00 Atropine Sulfate (Atropine Sulfate 0.1MG/Ml Inj) 0.5 mg Q1M PRN IV 12/18/16 08:00 12/18/16 13:00 Potassium Chloride/Dextrose/ Sod Cl 1,000 ml @ 100 mls/hr Q10H IV 12/18/16 12:00 12/19/16 11:59 Cefazolin Sodium 2000 mg/Dextrose 60 ml @ 100 mls/hr Q8H IV 12/18/16 16:00 12/19/16 00:35 Celecoxib (CeleBREX CAP) 200 mg BID PO 12/18/16 21:00 01/17/17 20:59 Oxycodone HCl (Roxicodone Immediate Rel Tab) 1 TABLET FOR PAIN RATING... Q4H PRN PO 12/18/16 09:15 01/01/17 09:14 Oxycodone HCl (Oxycontin Tab) 10 mg Q12 PO 12/18/16 21:00 01/01/17 20:59 Morphine Sulfate (MoRPHine SULFATE INJ) 2 mg 4XDQ4H PRN IV 12/18/16 09:15 01/01/17 09:14 Acetaminophen (Tylenol Tab) 1,000 mg Q8 PO 12/18/16 14:00 01/17/17 13:59 Magnesium Hydroxide (Milk Of Magnesia Susp) 30 ml Q6H PRN PO 12/18/16 09:15 01/17/17 09:14 Docusate Sodium (coLACE CAP) 100 mg BID PO 12/18/16 21:00 01/17/17 20:59 Diphenhydramine HCl (Benadryl Cap) 25 mg Q8H PRN PO 12/18/16 09:15 01/17/17 09:14 Diphenhydramine HCl (Benadryl Inj) 25 mg Q8H PRN IV 12/18/16 09:15 01/17/17 09:14 Al Hydrox/Mg Hydrox/Simethicone (Maalox Max Susp) 15 ml Q4H PRN PO 12/18/16 09:15 01/17/17 09:14 Zolpidem Tartrate (Ambien Tab) 5 mg HSZ PRN PO 12/18/16 09:15 01/17/17 09:14 Multivitamins (Multivitamin Tab) 1 tab QAM PO 12/19/16 09:00 01/18/17 08:59 Ondansetron HCl (Zofran Inj) 4 mg Q6H PRN IV 12/18/16 09:15 01/17/17 09:14 Ferrous Gluconate (Ferrous Gluconate Tab) 324 mg TIDM PO 12/18/16 12:30 01/17/17 12:29 Pantoprazole Sodium (Protonix Tab) 40 mg QAM PO 12/19/16 09:00 01/18/17 08:59 Warfarin Sodium (Coumadin Tab) 2.5 mg DAILY@1600 PO 12/18/16 16:00 01/17/17 15:59 Miscellaneous Information (Order Awaiting Action) 1 ea QS N/A 12/18/16 16:00 01/17/17 15:59 Enoxaparin Sodium (Lovenox Inj) 40 mg Q12H SQ 12/19/16 09:15 01/18/17 09:14 Review of Systems Constitutional: No fever, No chills, No sweats Eyes: No worsening of vision ENT: No hearing loss, No unusual epistaxis, No nasal symptoms Respiratory: No cough, No sputum, No wheezing Cardiovascular: No chest pain Abdomen: No pain, No nausea, No vomiting Musculoskeletal: No joint pain Genitourinary - Female: No dysuria, No urinary frequency, No urinary urgency Neurologic: No memory loss, No paralysis, No weakness Psychiatric: No depression symptoms Endocrine: No fatigue Hematologic / Lymphatic: No abnormal bleeding/bruising Integumentary: No rash Allergic / Immunologic: No environmental allergies Physical Exam Date Time Temp Pulse Resp B/P (MAP) Pulse Ox O2 Delivery O2 Flow Rate FiO2 12/18/16 11:06 36.4 58 19 132/84 (100) 100 Nasal Cannula 2.0 12/18/16 10:35 36.5 57 18 117/72 (87) 97 Nasal Cannula 2.0 12/18/16 10:35 Room Air 12/18/16 10:05 36.2 66 16 142/73 98 Nasal Cannula 2 12/18/16 09:55 66 17 141/70 97 Nasal Cannula 2 12/18/16 09:45 71 19 139/81 97 Nasal Cannula 2 12/18/16 09:35 84 20 145/80 99 Nasal Cannula 2 12/18/16 09:25 36.4 75 14 179/98 96 Nasal Cannula 2 12/18/16 07:09 36.5 68 16 149/84 99 Room Air General Appearance: WD/WN, no apparent distress Head: normocephalic Eyes: normal inspection, EOMI ENT: normal ENT inspection, pharynx normal Neck: supple, no JVD Respiratory/Chest: chest non-tender, lungs clear, normal breath sounds Cardiovascular: regular rate, rhythm Abdomen/GI: normal bowel sounds, non tender, soft Back: normal inspection, no CVA tenderness, no muscle spasm Extremities/Musculoskelatal: normal inspection Neurologic/Psych: sheet taker II-XII nml as tested, no motor/sensory deficits, alert Skin: normal color, warm/dry Laboratory Results Last 24 Hours Test 12/18/16 07:02 Prothrombin Time 10.5 SECONDS Prothromb Time International Ratio 1.0 Activated Partial Thromboplast Time 25.9 SECONDS Partial Thromboplastin Ratio 1.0 Assessment & Plan 61 y/o F Hx COPD, obesity, DVT, RA, crohns - ileostomy, OA - admitted 11/16 for elective R TKR. She has no specific complaints post-op. Pain is well controlled - denies CP, SOB, N/V, light head. Tolerating PO. Vitals have been stable post-op. 1) Post-op - No apparent complications - pending AM labs - Has been restarted on Coumadin and receiving Lovenox. 2) COPD - cont inhaler - no SOB reported 3) Hx DVT - restarted Coumadin as above 4) Mild renal impairment - pt takes Celebrex only for pain related to RA - we will check a BMP today to r/o post-op SIGRID - should follow with her PCP to determine an alternative med to avoid further renal impairment. Med will follow pending DC Total time for this admit including review of labs, meds, records, ortho notes - discussion with pt - 34 min
[2016-12-18] MEDS: D5W AND 1/2NSS + 20MEQ KCL 1,000 ML IV SCH ×2 (12:00→21:37)
--- NOTE | 2016-12-18 12:25 | Anesthesiology Progress Note ---
Anesthesia Post Op Note Date & Time Dec 18, 2016 at 12:25 Vital Signs Pain Intensity: 0 Vital Signs Past 12 Hours Date Time Temp Pulse Resp B/P (MAP) Pulse Ox O2 Delivery O2 Flow Rate FiO2 12/18/16 11:06 36.4 58 19 132/84 (100) 100 Nasal Cannula 2.0 12/18/16 10:35 Nasal Cannula 12/18/16 10:35 36.5 57 18 117/72 (87) 97 Nasal Cannula 2.0 12/18/16 10:35 Room Air 12/18/16 10:05 36.2 66 16 142/73 98 Nasal Cannula 2 12/18/16 09:55 66 17 141/70 97 Nasal Cannula 2 12/18/16 09:45 71 19 139/81 97 Nasal Cannula 2 12/18/16 09:35 84 20 145/80 99 Nasal Cannula 2 12/18/16 09:25 36.4 75 14 179/98 96 Nasal Cannula 2 12/18/16 07:09 36.5 68 16 149/84 99 Room Air Notes Mental Status: alert / awake / arousable, participated in evaluation Pt Amnestic to Procedure: Yes Nausea / Vomiting: adequately controlled Pain: adequately controlled Airway Patency, RR, SpO2: stable & adequate BP & HR: stable & adequate Hydration State: stable & adequate Neuraxial Anesthesia: was administered, sensory block is resolving Anesthetic Complications: no major complications apparent
[2016-12-18 12:42] LABS: BUN/CREATININE RATIO 19.5 (10-20); CALCIUM 8.9 mg/dl (8.5-10.1); POTASSIUM 4.2 mmol/L (3.5-5.1)
[2016-12-18] MEDS: FERROUS GLUCONATE 324 MG TAB PO SCH ×2 (14:30→17:57)
[2016-12-18] MEDS: ACETAMINOPHEN 500 MG TAB PO SCH ×2 (14:31→21:37)
[2016-12-18] MEDS: CEFAZOLIN IV 2,000 MG in DEXTROSE 5% 50ML 50 ML IV SCH ×2 (16:59→23:36)
[2016-12-18] MEDS: WARFARIN SOD 2.5 MG TAB PO SCH (17:01)
[2016-12-18] MEDS: OXYCODONE HCL IR 5 MG TAB (IMMEDIATE RELEASE) PO PRN ×2 (17:58→21:38)
[2016-12-18] MEDS: CeleBREX 200 MG CAP PO SCH (20:56)
[2016-12-18] MEDS: DOCUSATE SODIUM 100 MG CAP PO SCH ×2 (20:56→20:58)
[2016-12-18] MEDS: OXYCODONE HCL 10 MG TABCR (OXYCONTIN) PO SCH (20:56)
[2016-12-18] MEDS ORDERED: CeleBREX 200 MG CAP PO SCH (21:00)
[2016-12-19] VITALS (8 sets, daily range): BP systolic 95–120; BP diastolic 60–74; PULSE 54–79; TEMP 36.4–37; O2SAT 96–100
[2016-12-19] MEDS: ACETAMINOPHEN 500 MG TAB PO SCH ×3 (05:42→20:55)
[2016-12-19 06:31] LABS: HEMATOCRIT 33.4 % (37-47); MEAN CELL VOLUME 82.9 fL (80-100); MEAN CORPUSCULAR HEMOGLOBIN 26.1 pg (25-34); MEAN CORPUSCULAR HGB CONC 31.4 g/dl (32-36); MEAN PLATELET VOLUME 9.4 fL (7.4-10.4); PLATELET COUNT 199 K/uL (130-400); RED BLOOD COUNT 4.03 M/uL (4.2-5.4); WHITE BLOOD COUNT 12.06 K/uL (4.8-10.8)
[2016-12-19 06:58] LABS: CALCIUM 8.3 mg/dl (8.5-10.1); POTASSIUM 4.2 mmol/L (3.5-5.1)
[2016-12-19 07:26] LABS: PROTHROMBIN TIME (PATIENT) 10.5 SECONDS (9.0-12.0)
--- NOTE | 2016-12-19 07:48 | Orthopedic Progress Note ---
Orthopedic Progress Note Date of Service Dec 19, 2016. Subjective Post OP Day: 1 Reports: feeling well Objective N/V intact, dressing C/D/I (Hemovac in place), toes mobile Date Time Temp Pulse Resp B/P (MAP) Pulse Ox O2 Delivery O2 Flow Rate FiO2 12/19/16 07:11 36.5 66 16 119/69 (86) 99 Room Air 12/19/16 03:18 36.6 54 16 107/66 (80) 98 Room Air 12/18/16 23:30 Room Air 12/18/16 23:00 36.6 68 16 108/65 (79) 97 Room Air 12/18/16 19:46 36.4 71 17 121/73 (89) 99 Room Air 12/18/16 16:23 36.4 68 17 138/82 (100) 99 Nasal Cannula 2.0 12/18/16 15:45 Room Air 12/18/16 13:51 36.4 75 18 129/77 (94) 100 2.0 12/18/16 11:06 36.4 58 19 132/84 (100) 100 Nasal Cannula 2.0 12/18/16 10:35 Nasal Cannula 12/18/16 10:35 36.5 57 18 117/72 (87) 97 Nasal Cannula 2.0 12/18/16 10:35 Room Air 12/18/16 10:05 36.2 66 16 142/73 98 Nasal Cannula 2 12/18/16 09:55 66 17 141/70 97 Nasal Cannula 2 12/18/16 09:45 71 19 139/81 97 Nasal Cannula 2 12/18/16 09:35 84 20 145/80 99 Nasal Cannula 2 12/18/16 09:25 36.4 75 14 179/98 96 Nasal Cannula 2 Laboratory Results 24 Hours: Test 12/19/16 05:58 Hematocrit 33.4 % Hemoglobin 10.5 g/dL Prothromb Time International Ratio 1.0 Prothrombin Time 10.5 SECONDS Assessment & Plan Assessment: 61 yo female stable POD #1 s/p right TKA Plan: 1. Med management 2. DVT prophylaxis- resume normal Coumadin with Lovenox bridging, SCDs 3. PT/OT 4. D/C planning- home w/ HH
[2016-12-19] MEDS: FERROUS GLUCONATE 324 MG TAB PO SCH ×3 (08:33→18:07)
[2016-12-19] MEDS: OXYCODONE HCL 10 MG TABCR (OXYCONTIN) PO SCH ×2 (08:33→20:54)
[2016-12-19] MEDS: FLUTICASONE FUROATE-VILANTEROL 60 PUFFS INH INH SCH (08:33)
[2016-12-19] MEDS: DOCUSATE SODIUM 100 MG CAP PO SCH ×2 (08:34→20:54)
[2016-12-19] MEDS: CeleBREX 200 MG CAP PO SCH ×2 (08:34→20:54)
[2016-12-19] MEDS: MULTIVITAMIN TAB PO SCH (08:34)
[2016-12-19] MEDS: ENOXAPARIN 40 MG/0.4 ML SYR SQ SCH ×2 (08:35→20:55)
[2016-12-19] MEDS: PANTOprazole SOD 40 MG TAB PO SCH (08:35)
--- NOTE | 2016-12-19 09:22 | Anesthesiology Progress Note ---
Anesthesia Post Op Note Date & Time Dec 19, 2016 at 09:22 Vital Signs Vital Signs Past 12 Hours Date Time Temp Pulse Resp B/P (MAP) Pulse Ox O2 Delivery O2 Flow Rate FiO2 12/19/16 08:28 Room Air 12/19/16 07:11 36.5 66 16 119/69 (86) 99 Room Air 12/19/16 03:18 36.6 54 16 107/66 (80) 98 Room Air 12/18/16 23:30 Room Air 12/18/16 23:00 36.6 68 16 108/65 (79) 97 Room Air Notes Mental Status: alert / awake / arousable, participated in evaluation Pt Amnestic to Procedure: Yes Nausea / Vomiting: adequately controlled Pain: adequately controlled Airway Patency, RR, SpO2: stable & adequate BP & HR: stable & adequate Hydration State: stable & adequate Neuraxial Anesthesia: sensory block resolved Anesthetic Complications: no major complications apparent
--- NOTE | 2016-12-19 11:15 | Hospitalist Progress Note ---
Hospitalist Progress Note Date of Service Dec 19, 2016. Subjective Pt evaluation today including: conversation w/ patient, physical exam, chart review, lab review, review of inpatient medication list Patient reports feeling well. She states that her right knee is sore after physical therapy but that this is manageable. She did develop some nausea during physical therapy but this has since resolved. She is tolerating a PO diet and urinating without difficulty. The patient had been passing gas yesterday but has not passed much today. She has noted stool in her ileostomy bag. The patient denies fevers, chills, sweats, chest pain, palpitations, claudication, cough, wheezing, shortness of breath, vomiting, abdominal pain, dysuria, hematuria, urinary retention, paralysis, weakness, numbness and tingling. Additional Comments: See HPI for pertinent positives and negatives. All other systems reviewed and negative. Objective Vital Signs Date Time Temp Pulse Resp B/P (MAP) Pulse Ox O2 Delivery O2 Flow Rate FiO2 12/19/16 10:19 63 100 12/19/16 08:28 Room Air 12/19/16 07:11 36.5 66 16 119/69 (86) 99 Room Air 12/19/16 03:18 36.6 54 16 107/66 (80) 98 Room Air 12/18/16 23:30 Room Air 12/18/16 23:00 36.6 68 16 108/65 (79) 97 Room Air 12/18/16 19:46 36.4 71 17 121/73 (89) 99 Room Air 12/18/16 16:23 36.4 68 17 138/82 (100) 99 Nasal Cannula 2.0 12/18/16 15:45 Room Air 12/18/16 13:51 36.4 75 18 129/77 (94) 100 2.0 12/18/16 11:06 36.4 58 19 132/84 (100) 100 Nasal Cannula 2.0 Physical Exam Notes: General appearance: +Obese. Well-developed, well-nourished, no apparent distress Head: Normocephalic, atraumatic Eyes: Normal inspection, PERRL, EOMI ENT: Normal ENT inspection, hearing grossly normal, pharynx normal Neck: Supple, no JVD, trachea midline Respiratory/Chest: +Expiratory wheezing throughout. Normal breath sounds, no respiratory distress Cardiovascular: Regular rate & rhythm, no gallop, no murmur Abdomen/GI: +Ileostomy bag RLQ. Normal bowel sounds, non-tender, soft Extremities/Musculoskeletal: +RLE wrapped in sharmila bandage. Normal inspection, no calf tenderness, no pedal edema Neurological/Psych: Alert, normal mood/affect, oriented x 3 Skin: Normal color, warm/dry, no rash Laboratory Results Last 24 Hours Test 12/18/16 11:59 12/19/16 05:58 Sodium Level 137 mmol/L 139 mmol/L Potassium Level 4.2 mmol/L 4.2 mmol/L Chloride Level 107 mmol/L 108 mmol/L Carbon Dioxide Level 24 mmol/L 25 mmol/L Anion Gap 6.0 mmol/L 6.0 mmol/L Blood Urea Nitrogen 20 mg/dl 19 mg/dl Creatinine 1.00 mg/dl 1.00 mg/dl Est Creatinine Clear Calc Drug Dose 64.7 ml/min 64.7 ml/min Estimated GFR () 71.4 71.4 Estimated GFR (Non- 61.6 61.6 BUN/Creatinine Ratio 19.5 19.0 Random Glucose 146 mg/dl 153 mg/dl Calcium Level 8.9 mg/dl 8.3 mg/dl White Blood Count 12.06 K/uL Red Blood Count 4.03 M/uL Hemoglobin 10.5 g/dL Hematocrit 33.4 % Mean Corpuscular Volume 82.9 fL Mean Corpuscular Hemoglobin 26.1 pg Mean Corpuscular Hemoglobin Concent 31.4 g/dl RDW Standard Deviation 45.1 fL RDW Coefficient of Variation 14.8 % Platelet Count 199 K/uL Mean Platelet Volume 9.4 fL Prothrombin Time 10.5 SECONDS Prothromb Time International Ratio 1.0 Assessment and Plan 61 y/o female with a history of COPD, DVT, RA, Crohn's disease s/p ileostomy, and OA who presents s/p right TKA with Dr. Molina on 12/18 for medical management. S/p right TKA--POD #1 -Pain management, DVT prophylaxis, and PT/OT as per primary team COPD--wheezing noted on exam -Continue Breo 1 inh qd -DuoNebs QIDR and q2h prn SOB/wheezing h/o DVT -Pt's warfarin restarted, bridging with Lovenox per ortho -INR 1.0 on 12/19 RA -Continue Celebrex 200 mg PO BID Crohn's disease s/p ileostomy--stable, pt reports no further symptoms since ileostomy H/o recent SIGRID--resolved -Pre op labs in November had shown creatinine 1.3 -Creatinine 1.00 on 12/19 Thank you for this consultation. We will continue to follow.
[2016-12-19] MEDS ORDERED: ACETAMINOPHEN 500 MG TAB PO ONE (13:31)
[2016-12-19] MEDS: ALBUT/IPRATROP 3MG/0.5MG NEB 3 ML VIAL INH SCH ×2 (14:58→19:58)
[2016-12-19] MEDS: WARFARIN SOD 2.5 MG TAB PO SCH (16:07)
[2016-12-20] MEDS: ACETAMINOPHEN 500 MG TAB PO SCH ×2 (05:33→14:32)
[2016-12-20 06:35] VITALS: BP 125/78; PULSE 77; TEMP 37.1; O2SAT 99
[2016-12-20 06:38] LABS: HEMATOCRIT 29.8 % (37-47); MEAN CELL VOLUME 83.2 fL (80-100); MEAN CORPUSCULAR HEMOGLOBIN 25.7 pg (25-34); MEAN CORPUSCULAR HGB CONC 30.9 g/dl (32-36); MEAN PLATELET VOLUME 9.5 fL (7.4-10.4); PLATELET COUNT 155 K/uL (130-400); RED BLOOD COUNT 3.58 M/uL (4.2-5.4); WHITE BLOOD COUNT 6.05 K/uL (4.8-10.8)
[2016-12-20 06:45] LABS: INR 1.1 (0.9-1.1); PROTHROMBIN TIME (PATIENT) 11.5 SECONDS (9.0-12.0)
[2016-12-20 07:06] LABS: BUN/CREATININE RATIO 17.6 (10-20); CALCIUM 8.1 mg/dl (8.5-10.1); CREATININE 1.1 mg/dl (0.60-1.20)
--- NOTE | 2016-12-20 07:52 | Progress Note ---
Orthopedic SOAP Note Subjective Date of Service: Dec 20, 2016. Reports: feeling well, pain controlled w PO medications Problem List Medical Problems: (1) Cough Status: Acute (2) Dehydration Status: Acute (3) Dizziness Status: Acute (4) Lower extremity cellulitis Status: Acute Objective N/V intact, dressing C/D/I, CMS intact Date Time Temp Pulse Resp B/P (MAP) Pulse Ox O2 Delivery O2 Flow Rate FiO2 12/20/16 06:35 37.1 77 16 125/78 (94) 99 Room Air 12/19/16 23:02 37.0 78 16 115/71 (86) 98 Room Air 12/19/16 19:59 79 16 96 Room Air 12/19/16 19:40 Room Air 12/19/16 15:30 Room Air 12/19/16 15:12 36.4 68 16 120/74 (89) 100 Room Air 12/19/16 15:06 76 16 97 Room Air 12/19/16 10:19 63 100 12/19/16 08:28 Room Air Laboratory Results 24 Hours: Test 12/20/16 06:14 Hematocrit 29.8 % Hemoglobin 9.2 g/dL Prothromb Time International Ratio 1.1 Prothrombin Time 11.5 SECONDS Assessment 61 yo female stable POD #2 s/p right TKA Plan 1. Med management 2. DVT prophylaxis- resume normal Coumadin with Lovenox bridging, SCDs 3. PT/OT 4. D/C planning- home w/ HH today ,continue lovenox until inr therapeutic
[2016-12-20] MEDS: ALBUT/IPRATROP 3MG/0.5MG NEB 3 ML VIAL INH SCH ×2 (07:59→11:41)
--- NOTE | 2016-12-20 08:17 | Discharge Instructions ---
Discharge Instructions Date of Service Dec 20, 2016. Admission Reason for Admission: Right Knee Degenerative Joint Disease Discharge Discharge Diagnosis / Problem: Right KNee Djd Discharge Goals Goal(s): Decrease discomfort, Improve function Activity Recommendations Activity Limitations: per Instructions/Follow-up section Weightbearing Status: Right weightbearing (as tolerated) . Instructions / Follow-Up Instructions / Follow-Up ACTIVITY RECOMMENDATIONS: SELF CARE INSTRUCTIONS AFTER TOTAL KNEE REPLACEMENT A. You may need to continue a physical therapy program after discharge from the hospital. There are several options available to you. Your doctor will assist you in selecting the best one for you. 1. An out-patient facility 2 to 3 times a week for therapy or home therapy. 2. Continue working on all exercises taught to you in the hospital. Your goals should be to increase bending of your knee to 90 degrees and beyond and to fully straighten your knee. B. You may progress at your own pace from walking with a walker or crutches to a cane; then to no assistive devices. C. Make walking a part of your daily routine. Be up as much as comfortable with rest periods throughout the day. Rest with leg elevation is very important. Use the ice wrap frequently for the first 3-4 weeks. D. There are no restrictions on activities. You may ride in a car, shop, participate in environmental health safety engineer and all social activities. E. Wear the long elastic stockings (SOCORRO hose) 20 hours a day for 2 weeks after surgery. They can be removed several times a day for laundering and for a bath. F. You may shower, no tub baths until cleared by your doctor. SPECIAL CARE INSTRUCTIONS: VERY IMPORTANT TO READ AND REVIEW A. There are a few signs you need to watch for after you are home. Call [facility] if you notice any of the followin. Increased severe knee pain. Some pain is expected especially when you exercise. 2. Increased swelling in your leg or knee; pain or swelling of the calf muscle in either lower leg. 3. Any fluid drainage from the incision. 4. Shortness of breath or chest pain. B. Please call [facility] at if you have any concerns or questions about your operation or recovery. The doctor or his nurse will return your call promptly. C. You must take antibiotics before dental work, bladder, bowel or other surgery. Your doctor will provide you with a permanent care to carry describing this precaution. IMPORTANT: * RESUME YOUR COUMADIN USUAL. CONTINUE LOVENOX UNTIL YOUR INR IS THERAPEUTIC. THEN DISCONTINUE THE LOVENOX. * CALL IF INCREASED PAIN, REDNESS, DRAINAGE OR FEVER GREATER THAT 101. * WEAR SOCORRO HOSE 20 HOURS PER DAY FOR 2 WEEKS. * Silverlon- This is a large adhesive bandage that contains silver ions. This helps your incision heal by fighting off bacteria and protecting it from the outside environment. You are permitted to shower with this dressing. This will remain on your incision for 7 days and then should be removed. Some visible blood or drainage through the dressing window is normal. If there is significant drainage or leaking noted before the 7 days notify your doctor's office immediately. Once removed, keep incision clean and dry. If there is any drainage or redness noted, please call your surgeon. . FOLLOW UP VISIT: If appointment is not already scheduled: Please call [facility] to make a follow-up appointment for 2 weeks after your surgery at . Current Hospital Diet Patient's current hospital diet: Regular Diet Discharge Diet Recommended Diet: Regular Diet Procedures Procedures Performed: Right Total Knee Arthroplasty Pending Studies Studies pending at discharge: no Laboratory Results Hemoglobin A1c Test 11/15/16 13:55 Range/Units Estimated Average Glucose 137 mg/dl Hemoglobin A1c 6.4 H 4.5-5.6 % Medical Emergencies . Who to Call and When: Medical Emergencies: If at any time you feel your situation is an emergency, please call 911 immediately. . Non-Emergent Contact Non-Emergency issues call your: Surgeon Call Non-Emergent contact if: temperature is above 101.5, your pain is not controlled, your pain is worsening, wound has increased drainage, wound has increased redness . "Provider Documentation" section prepared by Clay Martell. . VTE Core Measure Inpt VTE Proph given/why not?: Enoxaparin (Lovenox)SQ, Warfarin (Coumadin), T.E.DElisa Stockings, SCD's [place] Drug Monitoring Program Search Results: patient reviewed within database, no issues identified
[2016-12-20] MEDS ORDERED: OXYSR10 PO (08:22)
[2016-12-20] MEDS ORDERED: RXC5 PO (08:22)
[2016-12-20] MEDS ORDERED: ACET-1256 PO (08:22)
[2016-12-20] MEDS ORDERED: SNK PO (08:22)
[2016-12-20] MEDS: FERROUS GLUCONATE 324 MG TAB PO SCH ×2 (08:30→11:48)
[2016-12-20] MEDS: FLUTICASONE FUROATE-VILANTEROL 60 PUFFS INH INH SCH (09:51)
[2016-12-20] MEDS: MULTIVITAMIN TAB PO SCH (09:51)
[2016-12-20] MEDS: CeleBREX 200 MG CAP PO SCH (09:51)
[2016-12-20] MEDS: ENOXAPARIN 40 MG/0.4 ML SYR SQ SCH (09:52)
[2016-12-20] MEDS: PANTOprazole SOD 40 MG TAB PO SCH (09:52)
[2016-12-20] MEDS: OXYCODONE HCL 10 MG TABCR (OXYCONTIN) PO SCH (09:52)
[2016-12-20] MEDS: DOCUSATE SODIUM 100 MG CAP PO SCH (09:52)
[2016-12-20 11:16] VITALS: BP 140/75
[2016-12-20 11:43] VITALS: PULSE 78; O2SAT 91
[2016-12-20 12:51] VITALS: BP 140/75; PULSE 78; TEMP 37.1; O2SAT 91
--- NOTE | 2016-12-20 15:17 | Progress Note ---
Subjective Date of Service: Dec 20, 2016. Subjective Pt evaluation today including: conversation w/ patient, physical exam, chart review, lab review, review of studies, review of inpatient medication list Persistent knee pain but not worsening Feeling weak No acute events overnight Problem List Medical Problems: (1) Cough Status: Acute (2) Dehydration Status: Acute (3) Dizziness Status: Acute (4) Lower extremity cellulitis Status: Acute Review of Systems Constitutional: No fever, No chills, No sweats, No weakness ENT: No hearing loss, No unusual epistaxis, No nasal symptoms, No sore throat Respiratory: No cough, No sputum, No wheezing, No shortness of breath, No dyspnea on exertion Cardiac: No chest pain, No orthopnea, No PND, No edema Abdomen: No pain, No nausea, No vomiting, No diarrhea Musculoskeletal: + joint pain, No muscle pain, No swelling, No calf pain Female : No dysuria, No urinary frequency, No hematuria, No incontinence Neurologic: No memory loss, No paralysis, No weakness, No numbness/tingling Psychiatric: No depression symptoms, No anhedonism, No anxiety, No insomnia Endo: No fatigue, No excessive thirst Skin: No rash, No itch Objective Vital Signs Date Time Temp Pulse Resp B/P (MAP) Pulse Ox O2 Delivery O2 Flow Rate FiO2 12/20/16 12:51 37.1 78 16 91 Room Air 12/20/16 11:43 78 16 91 Room Air 12/20/16 07:15 Room Air 12/20/16 06:35 37.1 77 16 125/78 (94) 99 Room Air 12/19/16 23:02 37.0 78 16 115/71 (86) 98 Room Air 12/19/16 19:59 79 16 96 Room Air 12/19/16 19:40 Room Air 12/19/16 15:30 Room Air Physical Exam General Appearance: WD/WN, + mild distress Eyes: normal inspection, PERRL, EOMI, sclerae normal Neck: supple, no adenopathy, thyroid normal, no JVD Respiratory/Chest: chest non-tender, lungs clear, normal breath sounds, no respiratory distress Cardiovascular: regular rate, rhythm, no edema, no gallop, no JVD Abdomen: normal bowel sounds, non tender, soft, no organomegaly Neurologic/Psychiatric: no motor/sensory deficits, alert, normal mood/affect, oriented x 3 Laboratory Results Last 24 Hours Test 12/20/16 06:14 White Blood Count 6.05 K/uL Red Blood Count 3.58 M/uL Hemoglobin 9.2 g/dL Hematocrit 29.8 % Mean Corpuscular Volume 83.2 fL Mean Corpuscular Hemoglobin 25.7 pg Mean Corpuscular Hemoglobin Concent 30.9 g/dl RDW Standard Deviation 46.7 fL RDW Coefficient of Variation 15.3 % Platelet Count 155 K/uL Mean Platelet Volume 9.5 fL Prothrombin Time 11.5 SECONDS Prothromb Time International Ratio 1.1 Sodium Level 139 mmol/L Potassium Level 4.0 mmol/L Chloride Level 110 mmol/L Carbon Dioxide Level 23 mmol/L Anion Gap 6.0 mmol/L Blood Urea Nitrogen 19 mg/dl Creatinine 1.10 mg/dl Est Creatinine Clear Calc Drug Dose 58.8 ml/min Estimated GFR () 63.6 Estimated GFR (Non- 54.9 BUN/Creatinine Ratio 17.6 Random Glucose 109 mg/dl Calcium Level 8.1 mg/dl Assessment and Plan 61 y/o female with a history of COPD, DVT, RA, Crohn's disease s/p ileostomy, and OA who presents s/p right TKA with Dr. Molina on 12/18 for medical management. S/p right TKA--POD #2 -Pain management, DVT prophylaxis, and PT/OT as per primary team COPD--wheezing noted on exam -Continue Breo 1 inh qd -DuoNebs QIDR and q2h prn SOB/wheezing h/o DVT -Pt's warfarin restarted, bridging with Lovenox per ortho -INR 1.1 on 12/20 RA -Continue Celebrex 200 mg PO BID Crohn's disease s/p ileostomy--stable, pt reports no further symptoms since ileostomy H/o recent SIGRID--resolved -Pre op labs in November had shown creatinine 1.3 -Creatinine 1.00 on 12/19
[2016-12-20] MEDS ORDERED: WARFARIN SOD 5 MG TAB PO SCH (16:00)
--- NOTE | 2016-12-22 10:48 | DISCHARGE SUMMARY ---
DISCHARGE DIAGNOSIS: Degenerative joint disease, right knee. SECONDARY DIAGNOSES: Chronic cough, chronic obstructive pulmonary disease, sleep apnea, history of deep venous thrombosis in the past, rheumatoid arthritis, osteoarthritis, sciatica, and obesity. CONSULTS: Dr. Sin Ann. COMPLICATIONS: None. PROCEDURES: Right total knee arthroplasty performed by Dr. Molina on 12/18/2016. BRIEF HISTORY: As dictated in the history and physical. HOSPITAL SUMMARY: The patient was admitted on the above-noted date and had the above-noted surgery performed, which she tolerated well. On the first postoperative day, the patient was feeling well and had no complaints. Dressings were clean, dry and intact. Toes were mobile and neurovascularly intact. Vital signs were stable. She was afebrile. Hemoglobin was 10.5 and she was started on physical therapy protocol and continued on DVT prophylaxis and pain management and medical management per [facility] hospitalist service. By her second postoperative day, she was feeling well and pain was controlled. Vital signs were stable. She was afebrile. Hemoglobin was 9.2 and she was continued on her PT protocol and DVT prophylaxis with Coumadin and Lovenox bridging. She was remaining medically stable as well as orthopedically stable and was progressing with her physical therapy and it was felt that she could be discharged to home. For further review, please see chart. LAB AND X-RAY DATA: As per chart. DISCHARGE INSTRUCTIONS: The patient was discharged to home in satisfactory condition on 12/20/2016. ACTIVITY: Weightbearing as tolerated right lower extremity. Follow TK instruction sheets and special care instructions as noted. Follow up with Dr. Molnia in 2 weeks. The patient is to call for an appointment if one has not been made for you. DISCHARGE MEDICATIONS: OxyContin 10 mg p.o. q. 12 hours, oxycodone 5-10 mg p.o. q. 4 hours p.r.n., and senna 2 tabs p.o. at bedtime. Resume home meds including warfarin, enoxaparin and Celebrex. Acetaminophen 500 mg 2 tabs p.o. q. 8 hours for 30 days. The patient is to have home health INR draws with results sent to primary care physician, who would adjust Coumadin dosage as necessary. The patient is to stop taking Lovenox as per primary care physician and/or when INR is therapeutic.
== END 2016-12-20 14:43 | disposition home health service (06) | DRG 470 ==
LOC: C.ACU 06:23 → C.3E 09:19 → ENRESERV 10:17
PROVIDERS: ADMIT Orthopaedic Surgery Sports Medicine; ATTEND Orthopaedic Surgery Sports Medicine
PROC: 0SRC0J9 Replacement of Right Knee Joint with Synthetic Substitute, Cemented, Open Approach (ICD-10-PCS; principal; 2016-12-18 07:30)
DX: M17.11 Unilateral primary osteoarthritis, right knee (principal); K50.90 Crohn's disease, unspecified, without complications; J44.9 Chronic obstructive pulmonary disease, unspecified; G47.30 Sleep apnea, unspecified; E66.9 Obesity, unspecified; M06.9 Rheumatoid arthritis, unspecified; Z86.718 Personal history of other venous thrombosis and embolism; Z79.01 Long term (current) use of anticoagulants; Z79.899 Other long term (current) drug therapy; Z68.30 Body mass index [BMI] 30.0-30.9, adult; Z93.2 Ileostomy status

== ENCOUNTER → 2017-07-26 | Outpatient (CLI) | payer OTHER ==
[~2017-07-26] MED LIST changes: +ACET-1256 PO; -ACETAMINOPHEN 500 MG TAB PO SCH; -BUPIVACAINE 0.25% 30 ML VIAL ONE; -BUPIVACAINE 0.5 % 5 MG/1 ML PF 10ML VIAL ONE; -CEFAZOLIN 2000 MG/60 ML D5W 60 ML IV SCH; -CeleBREX 200 MG CAP PO SCH; -DEXAMETHASONE 4 MG TAB PO SCH; +ENOX40IN SQ; -EpINEphrine INJ 1MG/ML AMP 1 MG/ML AMP ONE; -FAMOTIDINE 20 MG TAB PO SCH; -GABAPENTIN 300 MG CAP PO SCH; -LACTATED RINGER'S 1000ML 1,000 ML IV SCH; -LACTATED RINGER'S 1000ML IV SCH; -LACTATED RINGER'S 500 ML IV SCH; -METOCLOPRAMIDE HCL 10 MG TAB PO SCH; +OXYSR10 PO; -ROPIVACAINE 5MG/ML 30 ML 150 MG, BUPIVACAINE/EPINEPHR 0.5% MPF 30 ML, KETOROLAC TROMETH... INFIL SCH; +RXC5 PO; +SNK PO
== END | disposition home or self-care (01) ==
LOC: C.LABSPEC 10:06
PROVIDERS: ATTEND Internal Medicine
DX: R39.9 Unspecified symptoms and signs involving the genitourinary system (principal)

== ENCOUNTER → 2017-11-14 | Outpatient (CLI) | payer OTHER ==
[~2017-11-14] MED LIST changes: -ACET-1256 PO; -CLB/200 PO; -ENOX40IN SQ; -OXYSR10 PO; -RXC5 PO; -SNK PO
== END | disposition home or self-care (01) ==
LOC: C.LABSPEC 10:31
PROVIDERS: ATTEND Family Medicine
DX: R30.0 Dysuria (principal)

== ENCOUNTER 2017-11-22 09:33 | Emergency (ER) | payer OTHER ==
[~2017-11-22] VITALS: Ht 160 cm; Wt 86.0 kg
[2017-11-22 09:41] VITALS: TEMP 36.4; Ht 160 cm; Wt 86.0 kg
--- NOTE | 2017-11-22 10:13 | EMERGENCY ROOM VISIT NOTE ---
History Report prepared by Mono: Rosemary Craft Under the Supervision of: Dr. Omar Bhakta M.D. First contact with patient: 09:53 Chief Complaint: LEG PAIN,LEG INJURY Stated Complaint: LEFT LEG SWELLING AND REDNESS History of Present Illness The patient is a 62 year old female who presents to the Emergency Room with complaints of constant left knee swelling over the last 3 days. She states that she was at the [facility] today and was referred here as her knee was swollen and she has had some pain in her lower left leg. She reports a history of a left knee replacement 2 years ago. She reports that she has not had issues with her knee since the surgery and states that her knee has not felt like this since before the surgery. She states that she is on Coumadin and Macrobid. The patient reports a history of 2 blood clots in her left leg, one in 2007 and 2011. She states that she was placed on Coumadin after she had the second blood clot. The patient reports that her Coumadin levels have been fine recently. The patient denies recent falls but states that she recently hit her left leg with a chair. She denies having chest pain or shortness of breath. She denies a history of hyperlipidemia. Source of History: patient Onset: over the last 3 days Position: knee (left) Quality: other (swelling) Timing: constant Associated Symptoms: No chest pain, No SOB Review of Systems See HPI for pertinent positives and negatives. A total of ten systems were reviewed and were otherwise negative. Past Medical & Surgical Medical Problems: (1) Colectomy (2) Deep venous thrombosis (3) Dehydration (4) High output ileostomy (5) History of - section (6) History of appendectomy (7) History of repair of inguinal hernia (8) Incisional hernia repair (9) Menopause present (10) Partial colectomy (11) Plantar fascial fibromatosis (12) SICCA SYNDROME Surgical Problems: (1) S/P total knee arthroplasty Family History Blood clots Social History Smoking Status: Never Smoker Alcohol Use: none, occasionally Drug Use: none Marital Status: Housing Status: lives with family Occupation Status: employed Current/Historical Medications Scheduled Fluticasone Furoate-Vilanterol (Breo Ellipta), 1 INHA INH QAM Nitrofurantoin Monohyd Macrocr (Macrobid), 100 MG PO BID Warfarin Sod (Jantoven), 2.5 MG PO 6XWEEK Warfarin Sod (Jantoven), 5 MG PO SATURDAYS Allergies Coded Allergies: Ciprofloxacin (Verified Allergy, Intermediate, IV DOSE-BURNED UP ARM, 11/22) Iodinated Diagnostic Agents (Verified Allergy, Unknown, CAT SCAN DYE-RASH ITCHING, 11/22/17) Physical Exam Vital Signs Date Time Temp Pulse Resp B/P (MAP) Pulse Ox O2 Delivery O2 Flow Rate FiO2 11/22/17 11:40 69 20 137/67 95 Room Air 11/22/17 09:41 36.4 71 18 160/89 97 Room Air Physical Exam Physical Exam GENERAL: She is oriented to person, place, and time. She appears well- developed and well-nourished. She does not appear distressed. HENT: Exam performed. Head: Normocephalic and atraumatic. Right Ear: External ear normal. No mastoid tenderness. Left Ear: External ear normal. No mastoid tenderness. Mouth/Throat: The oropharynx is clear and moist. No trismus in the jaw. No dental abscesses or uvula swelling. No oropharyngeal exudate or tonsillar abscesses. EYES: Conjunctivae and EOM are normal. Pupils are equal, round, and reactive to light. Right eye exhibits no discharge. Left eye exhibits no discharge. No scleral icterus. NECK: Normal range of motion. Neck supple. No JVD present. No spinous process tenderness present. No carotid bruit present. No rigidity. No tracheal deviation and normal range of motion present. No Brudzinski's sign and no Kernig 's sign noted. CV: Normal rate, regular rhythm, normal heart sounds and intact distal pulses. There is no peripheral edema. Palpable radial pulses bue. PULM/CHEST: Effort normal and breath sounds normal. No respiratory distress. No stridor. She has no wheezes. She has no rales. Chest Wall: She exhibits no tenderness. ABD: The abdomen is soft. Bowel sounds are normal. She has no distension. No mass is present. There is no tenderness. There is no rebound, no guarding, no Talamantes's sign and no tenderness at McBurney's point. Rovsig negative. MUSC/SKEL: Normal range of motion. There is no peripheral edema, tenderness or deformity. lockman, posterior drawer, valgus/varus stress negative. Scars over the bilateral anterior knees. Pain on palpation on the left popliteal and posterior thigh. LYMPH: No cervical adenopathy. NEURO: She is alert and oriented to person, place, and time. She has normal strength. No cranial nerve deficit or sensory deficit. Coordination and gait normal. GCS eye subscore is 4. GCS verbal subscore is 5. GCS motor subscore is 6. Cerebellar tests wnl. SKIN: Skin is warm and dry. She is not diaphoretic. PSYCH: She has a normal mood and affect. Behavior is normal. Judgment and thought content normal. Medical Decision & Procedures ER Provider Diagnostic Interpretation: Radiology results as stated below per my review and radiologist interpretation: LEFT KNEE 4 VIEWS CLINICAL HISTORY: Left knee pain. FINDINGS: AP, crosstable lateral, tunnel, and sunrise views of the left knee are compared to study dated 10/12/2014. The skeletal structures are osteopenic. No fracture is seen. A left knee arthroplasty is in near-anatomic alignment and there has been undersurface remodeling of the patella. No periprosthetic lucency is identified. There is a joint effusion. Mild soft tissue swelling is present around the knee. IMPRESSION: 1. Soft tissue swelling and joint effusion. No acute bony abnormality is identified. 2. A left knee arthroplasty is in near-anatomic alignment. Electronically signed by: Babak Hart M.D. 11/22/2017 10:54 AM Dictated Date/Time: 11/22/2017 10:53 AM Laboratory Results 11/22/17 10:15 Red Blood Count 4.94, Mean Corpuscular Volume 81.6, Mean Corpuscular Hemoglobin 26.9, Mean Corpuscular Hemoglobin Concent 33.0, Mean Platelet Volume 9.3, Neutrophils (%) (Auto) 68.3, Lymphocytes (%) (Auto) 16.1, Monocytes (%) (Auto) 10.4, Eosinophils (%) (Auto) 4.8, Basophils (%) (Auto) 0.2, Neutrophils # (Auto ) 3.01, Lymphocytes # (Auto) 0.71, Monocytes # (Auto) 0.46, Eosinophils # (Auto ) 0.21, Basophils # (Auto) 0.01 11/22/17 10:15 Test 11/22/17 10:15 White Blood Count 4.41 K/uL (4.8-10.8) Red Blood Count 4.94 M/uL (4.2-5.4) Hemoglobin 13.3 g/dL (12.0-16.0) Hematocrit 40.3 % (37-47) Mean Corpuscular Volume 81.6 fL (80-100) Mean Corpuscular Hemoglobin 26.9 pg (25-34) Mean Corpuscular Hemoglobin Concent 33.0 g/dl (32-36) Platelet Count 183 K/uL (130-400) Mean Platelet Volume 9.3 fL (7.4-10.4) Neutrophils (%) (Auto) 68.3 % Lymphocytes (%) (Auto) 16.1 % Monocytes (%) (Auto) 10.4 % Eosinophils (%) (Auto) 4.8 % Basophils (%) (Auto) 0.2 % Neutrophils # (Auto) 3.01 K/uL (1.4-6.5) Lymphocytes # (Auto) 0.71 K/uL (1.2-3.4) Monocytes # (Auto) 0.46 K/uL (0.11-0.59) Eosinophils # (Auto) 0.21 K/uL (0-0.5) Basophils # (Auto) 0.01 K/uL (0-0.2) RDW Standard Deviation 43.2 fL (36.4-46.3) RDW Coefficient of Variation 14.5 % (11.5-14.5) Immature Granulocyte % (Auto) 0.2 % Immature Granulocyte # (Auto) 0.01 K/uL (0.00-0.02) Prothrombin Time 29.3 SECONDS (9.0-12.0) Prothromb Time International Ratio 2.8 (0.9-1.1) Activated Partial Thromboplast Time 42.7 SECONDS (21.0-31.0) Partial Thromboplastin Ratio 1.6 Anion Gap 8.0 mmol/L (3-11) Est Creatinine Clear Calc Drug Dose 56.5 ml/min Estimated GFR () 63.2 Estimated GFR (Non- 54.5 BUN/Creatinine Ratio 19.5 (10-20) Calcium Level 8.8 mg/dl (8.5-10.1) Laboratory results reviewed by ms ED Course 1008: The patient was evaluated in room C6. A complete history and physical exam was performed. 1113: vital signs are stable. Labs and imaging were within normal limits. Her INR is therapeutic. She will follow up with her PCP. She was offered an analgesia prior to discharge but she declined. DISCHARGE - Plan of care discussed with patient and questions answered. The patient was given both verbal and printed discharge instructions. The patient verbalized understanding and ability to comply. The patient is to seek outpatient follow up as noted in the discharge instructions. The patient verbalized understanding and ability to comply. The patient is discharged in stable condition. The patient was instructed to return for worsening symptoms. Medical Decision vital signs are stable. Labs and imaging were within normal limits. Her INR is therapeutic. She will follow up with her PCP. She was offered an analgesia prior to discharge but she declined. DISCHARGE - Plan of care discussed with patient and questions answered. The patient was given both verbal and printed discharge instructions. The patient verbalized understanding and ability to comply. The patient is to seek outpatient follow up as noted in the discharge instructions. The patient verbalized understanding and ability to comply. The patient is discharged in stable condition. The patient was instructed to return for worsening symptoms. Medication Reconcilliation Current Medication List: was personally reviewed by me Blood Pressure Screening Patient's blood pressure: Elevated blood pressure Blood pressure disposition: Elevated BP felt to be situational Impression Primary Impression: Leg pain, left Scribe Attestation The scribe's documentation has been prepared under my direction and personally reviewed by me in its entirety. I confirm that the note above accurately reflects all work, treatment, procedures, and medical decision making performed by me. The chart was completed utilizing [employer] Speech voice recognition software. Grammatical errors, random word insertions, pronoun errors, and incomplete sentences are an occasional consequence of this system due to software limitations, ambient noise, and hardware issues. Any formal questions or concerns about the content, text, or information contained within the body of this dictation should be directly addressed to the physician for clarification. Departure Information Dispostion Home / Self-Care Referrals Alex Jonas III, CRNP (PCP) Forms HOME CARE DOCUMENTATION FORM, IMPORTANT VISIT INFORMATION Patient Instructions Hamstring Curl, Hamstring Stretch, Heel Slides, Hip Abduction Quadruped, Hip Adduction Strength, Hip Adductor Stretch, My [facility]
[2017-11-22 10:27] LABS: BASO % 0.2 %; BASO ABS # 0.01 K/uL (0-0.2); EOS % 4.8 %; EOS ABS # 0.21 K/uL (0-0.5); HEMATOCRIT 40.3 % (37-47); HEMOGLOBIN 13.3 g/dL (12.0-16.0); IG# 0.01 K/uL (0.00-0.02); LYMPH % 16.1 %; LYMPH ABS # 0.71 K/uL (1.2-3.4); MEAN CELL VOLUME 81.6 fL (80-100); MEAN CORPUSCULAR HEMOGLOBIN 26.9 pg (25-34); MEAN PLATELET VOLUME 9.3 fL (7.4-10.4); MONO % 10.4 %; MONO ABS # 0.46 K/uL (0.11-0.59); NEUT % 68.3 %; NEUT ABS # 3.01 K/uL (1.4-6.5); PLATELET COUNT 183 K/uL (130-400); RED CELL DISTRIBUTION WIDTH CV 14.5 % (11.5-14.5); RED CELL DISTRIBUTION WIDTH SD 43.2 fL (36.4-46.3); WHITE BLOOD COUNT 4.41 K/uL (4.8-10.8)
[2017-11-22 10:40] LABS: INR 2.8 (0.9-1.1); PTT PATIENT 42.7 SECONDS (21.0-31.0)
[2017-11-22 10:43] LABS: CALCIUM 8.8 mg/dl (8.5-10.1); CREATININE 1.1 mg/dl (0.60-1.20)
--- NOTE | 2017-11-22 10:55 | DIAGNOSTIC IMAGING REPORT ---
LEFT KNEE 4 VIEWS CLINICAL HISTORY: Left knee pain. FINDINGS: AP, crosstable lateral, tunnel, and sunrise views of the left knee are compared to study dated 10/12/2014. The skeletal structures are osteopenic. No fracture is seen. A left knee arthroplasty is in near-anatomic alignment and there has been undersurface remodeling of the patella. No periprosthetic lucency is identified. There is a joint effusion. Mild soft tissue swelling is present around the knee. IMPRESSION: 1. Soft tissue swelling and joint effusion. No acute bony abnormality is identified. 2. A left knee arthroplasty is in near-anatomic alignment. Electronically signed by: Babak Hart M.D. 11/22/2017 10:54 AM Dictated Date/Time: 11/22/2017 10:53 AM
[2017-11-22] MEDS ORDERED: NITR-5 PO (11:11)
[2017-11-22] MEDS ORDERED: CALCIUM GLUCONATE 10% 10 ML VIAL IV STA (11:22)
[2017-11-22 11:40] VITALS: BP 137/67; PULSE 69; O2SAT 95
== END 2017-11-22 11:45 | disposition home or self-care (01) ==
LOC: C.EDB 09:34 → C.EDC 11:45
DX: M79.605 Pain in left leg (principal); Z88.8 Allergy status to other drugs, medicaments and biological substances; Z91.041 Radiographic dye allergy status

== ENCOUNTER → 2017-11-24 | Outpatient (CLI) | payer OTHER ==
[~2017-11-24] MED LIST changes: +NITR-5 PO
--- NOTE | 2017-11-24 11:55 | DIAGNOSTIC IMAGING REPORT ---
DOUBLE CONTRAST BARIUM ESOPHAGRAM CLINICAL HISTORY: Dysphagia. COMPARISON STUDY: Chest CT dated 09/22/2015. TECHNIQUE: A standard air contrast barium esophagram is performed. Multiple spot images of the esophagus are acquired both upright and prone. FINDINGS: The patient swallowed barium and the barium pill without difficulty. The mucosal pattern is normal. There is no evidence of intrinsic or extrinsic mass lesion. No aspiration was seen. The gastroesophageal junction distended normally. Gastroesophageal reflux was observed during the examination. There is a tiny sliding-type hiatal hernia. Fluoroscopy time: 1.8 minutes. Fluoroscopic images: 22 IMPRESSION: 1. Gastroesophageal reflux was observed during the examination. 2. Tiny hiatal hernia. Electronically signed by: Babak Hart M.D. 11/24/2017 11:54 AM Dictated Date/Time: 11/24/2017 11:53 AM
== END | disposition home or self-care (01) ==
LOC: C.RAD 10:40
PROVIDERS: ATTEND Family Medicine
DX: K21.9 Gastro-esophageal reflux disease without esophagitis (principal); K46.9 Unspecified abdominal hernia without obstruction or gangrene

== ENCOUNTER → 2017-11-28 | Outpatient (CLI) | payer OTHER ==
[2017-11-28 13:10] LABS: BASO % 0.2 %; BASO ABS # 0.01 K/uL (0-0.2); EOS % 4.7 %; EOS ABS # 0.22 K/uL (0-0.5); HEMATOCRIT 39.3 % (37-47); HEMOGLOBIN 13.1 g/dL (12.0-16.0); IG# 0.01 K/uL (0.00-0.02); LYMPH % 18.9 %; LYMPH ABS # 0.89 K/uL (1.2-3.4); MEAN CELL VOLUME 82.2 fL (80-100); MEAN CORPUSCULAR HEMOGLOBIN 27.4 pg (25-34); MEAN CORPUSCULAR HGB CONC 33.3 g/dl (32-36); MEAN PLATELET VOLUME 9.2 fL (7.4-10.4); MONO % 8.1 %; MONO ABS # 0.38 K/uL (0.11-0.59); NEUT % 67.9 %; NEUT ABS # 3.19 K/uL (1.4-6.5); PLATELET COUNT 190 K/uL (130-400); RED CELL DISTRIBUTION WIDTH CV 14.4 % (11.5-14.5); RED CELL DISTRIBUTION WIDTH SD 43.2 fL (36.4-46.3)
== END | disposition home or self-care (01) ==
LOC: C.LAB 11:27
PROVIDERS: ATTEND Orthopaedic Surgery Sports Medicine
DX: M25.062 Hemarthrosis, left knee (principal)

== ENCOUNTER 2019-04-16 16:31 | Observation (INO) ==
[2019-04-16] MEDS ORDERED: ONDANSETRON INJ 2 MG/ML 2 ML VIAL IV STA ×2 (18:42→20:49)
[2019-04-16] MEDS ORDERED: SODIUM CHLORIDE 0.9% 1000ML 1,000 ML IV SCH (18:45)
--- NOTE | 2019-04-16 19:05 | XRay Report ---
XR chest 1V portable CLINICAL HISTORY: weakness dyspnea COMPARISON STUDY: 08/19/2015 FINDINGS: The bones soft tissues and hemidiaphragms are normal. The cardiomediastinal silhouette is n ormal. The lungs are clear. The pulmonary vasculature is normal. IMPRESSION: Negative chest. ACT 112: Negative or not required by law. The above report was generated using voice recognition software. It may contain grammatical, syntax or spelling errors. Electronically signed by: Goran Mosqueda M.D. 04/16/2019 7:04 PM
--- NOTE | 2019-04-16 19:15 | Emergency Department Note ---
Entered by Gianluca Naik acting as a scribe for Anselmo Vizcaino MD History of Present Illness General Chief complaint: GI Assessment Stated complaint: FLU SYMPTOMS, DEHYDRATED Time Seen by Provider: 04/16/19 18:35 Source: patient Limitations: no limitations History of Present Illness Onset (ago): hour(s) (this morning) Location: abdomen Pain Consistency: + intermittent Maximum Pain Intensity: 1 Quality: + aching (back) Associated symptoms: + denies other symptoms (burning with urination, black or bloody stools), + nausea/vomiting and + other (frequently emptying her ostomy bag); no chest pain and no fever/chills (fevers) The patient is a 63 year old female who presents to the Emergency Room with complaints of intermittent vomiting starting this morning. The patient states she had Crohn's disease and so she received an ostomy in 2011. She states she has not had Crohn's symptoms since the surgery. She states she was told by her GI doctor to come to the ED if she was ever emptying her ostomy bag frequently and vomiting. She states she emptied her ostomy bag 6 times since 11 AM. She states she gets dehydrated easily. She notes she last vomited an hour ago. She states her nausea is coming back now. She notes she has back soreness. She notes she takes Coumadin because she had 2 previous blood clots. She states she is not sure why the blood clots happened. The patient denies having chest pain, fevers, burning with urination, and black or bloody stools. 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 Home Medications Home Medications Medication Instructions Recorded Confirmed Type fluticasone furoate-vilanterol 1 puffs INH QAM 04/16/19 04/16/19 History [Breo Ellipta] warfarin 2.5 mg PO [id number] 04/16/19 04/16/19 History warfarin 3.75 mg PO WK 04/16/19 04/16/19 History Allergies Allergy/AdvReac Type Severity Reaction Status Date / Time Cipro Allergy Intermediate IV Verified 11/22/17 11:10 DOSE-BURNED UP ARM ciprofloxacin Allergy Intermediate IV Verified 04/16/19 19:21 DOSE-BURNED UP ARM Iodinated Contrast Media Allergy Unknown CAT SCAN Verified 04/16/19 19:21 DYE-RASH ITCHING Past Med/Surg History Medical History Acid reflux (Chronic) Benign essential hypertension (Chronic) Crohn's disease (Chronic) Erosive (osteo)arthritis (Chronic) Granulomatous lung disease (Chronic) Sensorineural hearing loss (SNHL) of both ears (Chronic) Sjogren's syndrome (Chronic) SS-A antibody positive (Chronic) Tinnitus (Chronic) Type 2 diabetes mellitus (Chronic) Urinary, incontinence, stress female (Chronic) Venous insufficiency (Chronic) Surgical History History of appendectomy History of section History of colonoscopy History of hernia repair History of left knee surgery History of oophorectomy History of tubal ligation Family History Sister Hypertension Brother Hypertension Mother Hypertension Social History Preferred Language: Polish Communication Ability: Effective Visual Impairment: No Limitations Hearing Ability: Normal Director Of Public Health Required: No Beliefs That Will Affect Care: None marital status: Current Living Situation: Spouse current occupational status: employed 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 and A total of 10 systems reviewed and were otherwise negative Physical Exam Vital Signs Vital Signs - 24 hr 04/16/19 17:07 04/16/19 19:07 04/16/19 19:11 Temperature 36.7 C Temperature Source Oral Pulse Rate 99 H 90 86 Pulse Rate [Right Finger] 87 Pulse Rate from SpO2 Sensor 89 86 Pulse Rhythm Regular Pulse Rhythm [Right Finger] Regular Pulse Strength Normal Pulse Strength [Right Finger] Normal Respiratory Rate 18 16 19 Respiratory Effort / Characteristics Non-Labored Spontaneous Non-Labored Spontaneous Respiratory Depth Normal Normal Respiratory Pattern Regular Blood Pressure 132/83 131/65 Blood Pressure [Right Arm] 131/65 Blood Pressure Mean 99 82 Blood Pressure Mean [Right Arm] 87 Blood Pressure Position Sitting Pulse Oximetry 97 96 96 Oxygen Delivery Method Room Air Room Air Sepsis Recent Fever Within 48 Hours No Sepsis New/Unexplained Change in Mental Status No Sepsis Action Taken by Nursing No Action Required 04/16/19 19:30 04/16/19 20:00 04/16/19 20:30 Temperature Temperature Source Pulse Rate 89 86 95 H Pulse Rate [Right Finger] Pulse Rate from SpO2 Sensor 88 87 94 H Pulse Rhythm Pulse Rhythm [Right Finger] Pulse Strength Pulse Strength [Right Finger] Respiratory Rate 23 24 27 H Respiratory Effort / Characteristics Respiratory Depth Respiratory Pattern Blood Pressure Blood Pressure [Right Arm] Blood Pressure Mean Blood Pressure Mean [Right Arm] Blood Pressure Position Pulse Oximetry 99 100 94 Oxygen Delivery Method Sepsis Recent Fever Within 48 Hours Sepsis New/Unexplained Change in Mental Status Sepsis Action Taken by Nursing 04/16/19 21:00 04/16/19 21:24 04/16/19 21:26 Temperature Temperature Source Pulse Rate 89 90 90 Pulse Rate [Right Finger] Pulse Rate from SpO2 Sensor 91 H 89 90 Pulse Rhythm Pulse Rhythm [Right Finger] Pulse Strength Pulse Strength [Right Finger] Respiratory Rate 18 19 20 Respiratory Effort / Characteristics Respiratory Depth Respiratory Pattern Blood Pressure 114/61 113/60 Blood Pressure [Right Arm] Blood Pressure Mean 71 74 Blood Pressure Mean [Right Arm] Blood Pressure Position Pulse Oximetry 94 97 Oxygen Delivery Method Sepsis Recent Fever Within 48 Hours Sepsis New/Unexplained Change in Mental Status Sepsis Action Taken by Nursing 04/16/19 21:27 04/16/19 21:30 04/16/19 21:31 Temperature Temperature Source Pulse Rate 87 87 88 Pulse Rate [Right Finger] Pulse Rate from SpO2 Sensor 87 85 87 Pulse Rhythm Pulse Rhythm [Right Finger] Pulse Strength Pulse Strength [Right Finger] Respiratory Rate 17 21 17 Respiratory Effort / Characteristics Respiratory Depth Respiratory Pattern Blood Pressure 111/66 Blood Pressure [Right Arm] Blood Pressure Mean 76 Blood Pressure Mean [Right Arm] Blood Pressure Position Pulse Oximetry 96 98 98 Oxygen Delivery Method Sepsis Recent Fever Within 48 Hours Sepsis New/Unexplained Change in Mental Status Sepsis Action Taken by Nursing 04/16/19 22:00 04/16/19 22:01 Temperature Temperature Source Pulse Rate 90 93 H Pulse Rate [Right Finger] Pulse Rate from SpO2 Sensor 91 H 93 H Pulse Rhythm Pulse Rhythm [Right Finger] Pulse Strength Pulse Strength [Right Finger] Respiratory Rate 27 H 27 H Respiratory Effort / Characteristics Respiratory Depth Respiratory Pattern Blood Pressure 119/60 Blood Pressure [Right Arm] Blood Pressure Mean 80 Blood Pressure Mean [Right Arm] Blood Pressure Position Pulse Oximetry 95 96 Oxygen Delivery Method Sepsis Recent Fever Within 48 Hours Sepsis New/Unexplained Change in Mental Status Sepsis Action Taken by Nursing General: Non-ill appearing 63 year-old female in no acute distress. HEENT: Normal cephalic atraumatic. Pupils are equal round and reactive to light. Extraocular movements are intact. Oropharynx is pink with moist mucous membranes. No swelling of the mouth lips or tongue. Neck: Supple with a midline trachea. No meningeal signs or stiffness, no JVD or bruits. No Stridor. Chest: Clear to auscultation bilaterally. No wheezes or rhonchi. No increased work of breathing. Heart: regular rate and rhythm. Abdomen: Soft nontender, nondistended without rebound guarding or rigidity. Ostomy has a moderate amount of non-melanotic and non-bloody output. Extremities: No cyanosis clubbing or edema. No calf tenderness or asymmetry Spine/Back. Non tender to palpation. No CVA tenderness Skin: Good turgor without rashes. Neurologic exam: Cranial nerves two through 12 are intact. Motor and sensation are intact and symmetrical throughout. Course Course 1840: The patient was evaluated in room B9, and a complete history and physical examination were performed. 2054: I reevaluated the patient. She is feeling better. I ordered more Zofran as the patient is still nauseous. 2208: I discussed the patient's case with Dr. Clay - [facility] Hospitalist. He will evaluate the patient for further management Administered Medications Discontinued Medications Sodium Chloride (Nss 1000ml) 1,000 mls @ 999 mls/hr IV .Q1H1M BAM Stop: 04/16/19 19:45 Last Infusion: 04/16/19 20:12 Dose: 0 mls/hr Documented by: [id number] Admin: 04/16/19 19:05 Dose: 999 mls/hr Documented by: [id number] Sodium Chloride (Nss 1000ml) 1,000 mls @ 999 mls/hr IV .Q1H1M ONE Stop: 04/16/19 21:49 Last Admin: 04/16/19 21:26 Dose: 999 mls/hr Documented by: [id number] Ondansetron HCl (Zofran) 4 mg IV NOW STA Stop: 04/16/19 18:43 Last Admin: 04/16/19 19:05 Dose: 4 mg Documented by: [id number] Ondansetron HCl (Zofran) 4 mg IV NOW STA Stop: 04/16/19 20:50 Last Admin: 04/16/19 21:26 Dose: 4 mg Documented by: [id number] Medical Decision Making Differential Diagnosis Differential Diagnosis includes but is not limited to dehydration, infection, cardiac disease, and electrolyte or metabolic abnormality. Medical Records Attestation: I reviewed the patient's medical records. Home Medications Current Medication List: was personally reviewed by me Laboratory Data Attestation: I reviewed the patient's lab results. Result diagrams: 04/16/19 19:03 04/16/19 19:03 Lab Results 04/16/19 04/16/19 04/16/19 Range/Units 19: 19: 19: WBC 6.20 (4.8-10.8) K/uL RBC 5.58 H (4.2-5.4) M/uL Hgb 14.8 (12.0-16.0) g/dL Hct 44.7 (37-47) % MCV 80.1 (80-100) fL MCH 26.5 (25-34) pg MCHC 33.1 (32-36) g/dL RDW Std Deviation 42.8 (36.4-46.3) fL RDW Coeff of Madelaine 14.7 H (11.5-14.5) % Plt Count 174 (130-400) K/uL MPV 9.4 (7.4-10.4) fL Immature Gran % (Auto) 0.3 % Neut % (Auto) 89.3 % Lymph % (Auto) 3.7 % [place] % (Auto) 3.4 % Eos % (Auto) 3.1 % Baso % (Auto) 0.2 % Immature Gran # (Auto) 0.02 (0.00-0.02) K/uL Neut # (Auto) 5.54 (1.4-6.5) K/uL Lymph # (Auto) 0.23 L (1.2-3.4) K/uL [place] # (Auto) 0.21 (0.11-0.59) K/uL Eos # (Auto) 0.19 (0-0.5) K/uL Baso # (Auto) 0.01 (0-0.2) K/uL PT 24.8 H (9.0-12.0) Seconds INR 2.6 H (0.9-1.1) APTT 40.3 H (21.0-31.0) Seconds PTT Ratio 1.5 Sodium 137 (136-145) mmol/L Potassium 4.1 (3.5-5.1) mmol/L Chloride 104 (98-107) mmol/L Carbon Dioxide 28 (21-32) mmol/L Anion Gap 5.0 (3-11) BUN 23 H (7-18) mg/dl Creatinine 1.25 H (0.6-1.2) mg/dl Est Cr Clr Drug Dosing 49.2 ml/min Est GFR ( Amer) 53.8 Est GFR (Non-Af Amer) 46.4 BUN/Creatinine Ratio 18.3 (10-20) Glucose 138 H (70-99) mg/dl Calcium 9.3 (8.5-10.1) mg/dl Total Bilirubin 0.5 (0.2-1) mg/dl AST 23 (15-37) U/L ALT 29 (12-78) U/L Alkaline Phosphatase 86 (45-117) U/L Troponin I < 0.015 (0-0.045) ng/ml Total Protein 8.9 H (6.4-8.2) gm/dl Albumin 3.6 (3.4-5.0) gm/dl Globulin 5.3 H (2.5-4.0) gm/dl Albumin/Globulin Ratio 0.7 L (0.9-2) TSH 2.630 (0.300-4.500) uIu/ml Urine Color Urine Appearance (Clear) Urine pH (4.5-7.5) Ur Specific Jackson (1.000-1.030) Urine Protein (Negative) Urine Glucose (UA) (Negative) Urine Ketones (Negative) Urine Blood (Negative) Urine Nitrite (Negative) Urine Bilirubin (Negative) Urine Urobilinogen (Negative) Ur Leukocyte Esterase (Negative) Urine WBC (Auto) (0-5) /hpf Urine RBC (Auto) (0-4) /hpf U Hyaline Cast (Auto) (0-5) /lpf U Epithel Cells (Auto) (0-5) /lpf Urine Bacteria (Auto) (Negative) 01/03/20 Range/Units 19:03 WBC (4.8-10.8) K/uL RBC (4.2-5.4) M/uL Hgb (12.0-16.0) g/dL Hct (37-47) % MCV (80-100) fL MCH (25-34) pg MCHC (32-36) g/dL RDW Std Deviation (36.4-46.3) fL RDW Coeff of Madelaine (11.5-14.5) % Plt Count (130-400) K/uL MPV (7.4-10.4) fL Immature Gran % (Auto) % Neut % (Auto) % Lymph % (Auto) % [place] % (Auto) % Eos % (Auto) % Baso % (Auto) % Immature Gran # (Auto) (0.00-0.02) K/uL Neut # (Auto) (1.4-6.5) K/uL Lymph # (Auto) (1.2-3.4) K/uL [place] # (Auto) (0.11-0.59) K/uL Eos # (Auto) (0-0.5) K/uL Baso # (Auto) (0-0.2) K/uL PT (9.0-12.0) Seconds INR (0.9-1.1) APTT (21.0-31.0) Seconds PTT Ratio Sodium (136-145) mmol/L Potassium (3.5-5.1) mmol/L Chloride (98-107) mmol/L Carbon Dioxide (21-32) mmol/L Anion Gap (3-11) BUN (7-18) mg/dl Creatinine (0.6-1.2) mg/dl Est Cr Clr Drug Dosing ml/min Est GFR ( Amer) Est GFR (Non-Af Amer) BUN/Creatinine Ratio (10-20) Glucose (70-99) mg/dl Calcium (8.5-10.1) mg/dl Total Bilirubin (0.2-1) mg/dl AST (15-37) U/L ALT (12-78) U/L Alkaline Phosphatase (45-117) U/L Troponin I (0-0.045) ng/ml Total Protein (6.4-8.2) gm/dl Albumin (3.4-5.0) gm/dl Globulin (2.5-4.0) gm/dl Albumin/Globulin Ratio (0.9-2) TSH (0.300-4.500) uIu/ml Urine Color Dark Yellow Urine Appearance Clear (Clear) Urine pH 5.0 (4.5-7.5) Ur Specific Jackson 1.025 (1.000-1.030) Urine Protein 1+ H (Negative) Urine Glucose (UA) Negative (Negative) Urine Ketones Negative (Negative) Urine Blood Negative (Negative) Urine Nitrite Negative (Negative) Urine Bilirubin Negative (Negative) Urine Urobilinogen Negative (Negative) Ur Leukocyte Esterase Negative (Negative) Urine WBC (Auto) 1-5 (0-5) /hpf Urine RBC (Auto) 5-10 H (0-4) /hpf U Hyaline Cast (Auto) 10-30 H (0-5) /lpf U Epithel Cells (Auto) 20-30 H (0-5) /lpf Urine Bacteria (Auto) Negative (Negative) Imaging Data Radiologist's Impression: Radiology results as stated below per my review and the radiologist's interpretation: XR chest 1V portable CLINICAL HISTORY: weakness dyspnea COMPARISON STUDY: 08/19/2015 FINDINGS: The bones soft tissues and hemidiaphragms are normal. The cardiomediastinal silhouette is normal. The lungs are clear. The pulmonary vasculature is normal. IMPRESSION: Negative chest. ACT 112: Negative or not required by law. The above report was generated using voice recognition software. It may contain grammatical, syntax or spelling errors. Electronically signed by: Goran Mosqueda M.D. 04/16/2019 7:04 PM ECG Data Attestation: I personally reviewed and interpreted this ECG as follows: Indication: + vomiting Rate (beats per minute): 88 Rhythm: + sinus rhythm ECG Intervals/blocks: + Short DC ECG ST segments: no ST depression and no ST elevation ECG Findings: + Other (low voltage) Comparison ECG Date: from (11/15/16) Change: no significant change Blood Pressure Blood Pressure Findings: Elevated blood pressure Blood Pressure Disposition: further management by hospitalist [facility] Narrative This patient comes in as described above. She is feeling dehydrated she does have an ostomy and has had multiple outputs today. She denies any chest pain or shortness of breath or other symptoms. she does have some mild cramping at times. No blood or melena in her ostomy. EKG and chest x-ray were obtained multiple blood testing was obtained. she was hydrated with a 1 liter IV normal saline bolus and 4mg IV Zofran. She was reassessed frequently. She did receive a second liter normal saline as well as additional 4 mg of Zofran was feeling quite a bit better. Her BUN and creatinine are mildly elevated compared to yesterday I do think she is clinically dry and is at risk for significant dehydration given her high output ileostomy. Typically when she gets this they observe her overnight and I think this is the right thing to do. I have consulted the [facility] hospitalist to see her for admission/observation and further rehydration and evaluation. She has nothing a t this point to suggest infection or sepsis. She has nothing to chest acute coronary syndrome or significant arrhythmia. EKG does not show any ischemic changes. Chest x-ray is unremarkable. She was found to be therapeutic on her Coumadin. She will be observed. Impression & Plan Dehydration, Nausea, High output ileostomy, Chronic anticoagulation Discharge Plan Visit Data *Final* Discharge Date/Time: 04/16/19 23:47 Chief Complaint: GI Assessment Stated Complaint: FLU SYMPTOMS, DEHYDRATED ED Provider: Anselmo Vizcaino Discharge Problem: Dehydration, Nausea, High output ileostomy, Chronic anticoagulation Patient Disposition: Admitted As Inpatient Discharge Instructions Interventions: ED Discharge Assessment Last Done: 04/16/19 23:47 The scribe's documentation has been prepared under my direction and personally reviewed by me in its entirety. I confirm that the note above accurately reflect s all work, treatment, procedures, and medical decision making performed by me.
[2019-04-16 19:22] LABS: Appearance Urine Clear (Clear); Bacteria Urine Automated Negative (Negative); Bilirubin Urine Negative (Negative); Blood Urine Negative (Negative); Color Urine Dark Yellow; Epithelial Cell Urine Auto 20-30 /lpf (0-5); Glucose Urine UA Negative (Negative); Ketones Urine Negative (Negative); Leukocyte Esterase Urine Negative (Negative); Nitrite Urine Negative (Negative); Protein Urine 1+ (Negative); Specific Gravity Urine 1.025 (1.000-1.030); Urobilinogen Urine Negative (Negative)
[2019-04-16 19:28] LABS: Basophils # (auto) 0.01 K/uL (0-0.2); Basophils % (auto) 0.2 %; Eosinophils # (auto) 0.19 K/uL (0-0.5); Eosinophils % (auto) 3.1 %; Hematocrit (blood only) 44.7 % (37-47); Hemoglobin 14.8 g/dL (12.0-16.0); Immature Granulocytes # (auto) 0.02 K/uL (0.00-0.02); Immature Granulocytes % (auto) 0.3 %; Lymphocytes # (auto) 0.23 K/uL (1.2-3.4); Lymphocytes % (auto) 3.7 %; Mean Corpuscular Hemoglobin 26.5 pg (25-34); Mean Corpuscular Hgb Conc 33.1 g/dL (32-36); Mean Corpuscular Volume 80.1 fL (80-100); Mean Platelet Volume 9.4 fL (7.4-10.4); Monocytes # (auto) 0.21 K/uL (0.11-0.59); Monocytes % (auto) 3.4 %; Neutrophils # (auto) 5.54 K/uL (1.4-6.5); Neutrophils % (auto) 89.3 %; Platelet Count 174 K/uL (130-400); RDW Coefficient of Variation 14.7 % (11.5-14.5); RDW Standard Deviation 42.8 fL (36.4-46.3); Red Blood Count 5.58 M/uL (4.2-5.4)
[2019-04-16 19:39] LABS: INR 2.6 (0.9-1.1); Partial Thromboplastin Ratio 1.5; Partial Thromboplastin Time 40.3 Seconds (21.0-31.0); Prothrombin Time 24.8 Seconds (9.0-12.0)
[2019-04-16 19:42] LABS: Alanine Aminotransferase 29 U/L (12-78); Albumin Level 3.6 gm/dl (3.4-5.0); Aspartate Aminotransferase 23 U/L (15-37); BUN Creatinine Ratio 18.3 (10-20); Blood Urea Nitrogen 23 mg/dl (7-18); Calcium 9.3 mg/dl (8.5-10.1); Carbon Dioxide 28 mmol/L (21-32); Chloride 104 mmol/L (98-107); Creatinine Clr Calc Pharmacy 49.2 ml/min; Est GFR (African American) 53.8; Est GFR (Non-African American) 46.4; Glucose 138 mg/dl (70-99); Potassium 4.1 mmol/L (3.5-5.1); Sodium 137 mmol/L (136-145)
[2019-04-16 19:53] LABS: Albumin Globulin Ratio 0.7 (0.9-2); Alkaline Phosphatase 86 U/L (45-117); Bilirubin,Total 0.5 mg/dl (0.2-1); Globulin 5.3 gm/dl (2.5-4.0); Total Protein 8.9 gm/dl (6.4-8.2); Troponin I < 0.015 ng/ml (0-0.045)
[2019-04-16] MEDS ORDERED: SODIUM CHLORIDE 0.9% 1000ML 1,000 ML IV ONE (20:49)
--- NOTE | 2019-04-16 23:30 | History & Physical Report ---
Date of Service April 16, 2019 Assessment & Plan (1) Viral gastroenteritis: I feel this is likely cause of her vomiting and increased ostomy output. Her son had viral gastroenteritis few days prior IVF Antiemetics Advance diet as tolerated. 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 INR therapeutic at 2.6 Continue warfarin. History of Present Illness 63 y/o female presented to the ED with vomiting, nausea and increased ostomy output that began this am. She declines having any abdominal pain. She notes that her son had a GI virus over the weekend with vomiting and diarrhea. She declines having chest pain, SOB, cough, F/C, black tarry or blood in ostomy bag. She notes her food service representative is Dr. Drummond. Primary Care Provider: Alex Jonas, III, PARTS IDENTIFICATION TECHNICIAN Allergies Allergy/AdvReac Type Severity Reaction Status Date / Time Cipro Allergy Intermediate IV Verified 11/22/17 11:10 DOSE-BURNED UP ARM ciprofloxacin Allergy Intermediate IV Verified 04/16/19 19:21 DOSE-BURNED UP ARM Iodinated Contrast Media Allergy Unknown CAT SCAN Verified 04/16/19 19:21 DYE-RASH ITCHING Home Medications Home Medications Medication Instructions Recorded Confirmed Type fluticasone furoate-vilanterol 1 puffs INH QAM 04/16/19 04/16/19 History [Breo Ellipta] warfarin 2.5 mg PO 6XWK 04/16/19 04/16/19 History warfarin 3.75 mg PO WK 04/16/19 04/16/19 History Past Med/Surg History Medical History Acid reflux (Chronic) Benign essential hypertension (Chronic) Crohn's disease (Chronic) Erosive (osteo)arthritis (Chronic) Granulomatous lung disease (Chronic) Sensorineural hearing loss (SNHL) of both ears (Chronic) Sjogren's syndrome (Chronic) SS-A antibody positive (Chronic) Tinnitus (Chronic) Type 2 diabetes mellitus (Chronic) Urinary, incontinence, stress female (Chronic) Venous insufficiency (Chronic) Surgical History History of appendectomy History of section History of colonoscopy History of hernia repair History of left knee surgery History of oophorectomy History of tubal ligation Family History Sister Hypertension Brother Hypertension Mother Hypertension Social History Preferred Language: French Visual Impairment: No Limitations Hearing Ability: Normal marital status: Current Living Situation: Spouse and Family current occupational status: employed 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 - no dysuria, no hematuria Musculoskeletal- no arthralgias, no myalgias Derm- no rashes, no new skin lesions, no changing skin lesions Hematologic- no unusual bruising, no unusual bleeding Lymphatics- no adenopathy Endocrine- no polyuria or polydipsia; no heat or cold intolerance Neuro- no headaches, no focal neurologic symptoms Psych- no anxiety, no depression Physical Exam Physical Exam: General- adult Head- atraumatic Eyes- PERRL, EOMI, anicteric ENT- oropharynx clear Neck- supple, no JVD, no adenopathy, no thyromegaly; carotids +2/2, no bruits appreciated Lungs- clear to auscultation and percussion Heart- regular rhythm; no murmur, no gallop, no rub appreciated Abdomen- normal bowel sounds, soft, nontender, Ostomy has a moderate amount of non-melanotic and non-bloody output. Extremities- no pretibial edema, no calf tenderness; peripheral pulses intact Neuro- alert, oriented x 3; PERRL, EOMI; power and recovery superintendent II-XII grossly intact, non-focal. Skin- warm & dry Results & Data Vital Signs (Past 12 Hours) Vital Signs Temp Pulse Pulse Resp BP BP Pulse Ox 04/16/19 23:03 84 20 110/67 98 04/16/19 22:01 93 H 27 H 96 04/16/19 22:00 90 27 H 119/60 95 04/16/19 21:31 88 17 98 04/16/19 21:30 87 21 111/66 98 04/16/19 21:27 87 17 96 04/16/19 21:26 90 20 113/60 97 04/16/19 21:24 90 19 114/61 94 04/16/19 21:00 89 18 04/16/19 20:30 95 H 27 H 94 04/16/19 20:00 86 24 100 04/16/19 19:30 89 23 99 04/16/19 19:11 86 19 96 04/16/19 19:07 90 87 16 131/65 131/65 96 04/16/19 17:07 36.7 C 99 H 18 132/83 97 Laboratory Results Laboratory Results WBC 6.20 K/uL (4.8-10.8) 04/16/19 19:03 RBC 5.58 M/uL (4.2-5.4) H 04/16/19 19:03 Hgb 14.8 g/dL (12.0-16.0) 04/16/19 19:03 Hct 44.7 % (37-47) 04/16/19 19:03 MCV 80.1 fL (80-100) 04/16/19 19:03 MCH 26.5 pg (25-34) 04/16/19 19:03 MCHC 33.1 g/dL (32-36) 04/16/19 19:03 RDW Std Deviation 42.8 fL (36.4-46.3) 04/16/19 19:03 RDW Coeff of Madelaine 14.7 % (11.5-14.5) H 04/16/19 19:03 Plt Count 174 K/uL (130-400) 04/16/19 19:03 MPV 9.4 fL (7.4-10.4) 04/16/19 19:03 Immature Gran % (Auto) 0.3 % 01/03/20 19:03 Neut % (Auto) 89.3 % 04/16/19 19:03 Lymph % (Auto) 3.7 % 04/16/19 19:03 Christian % (Auto) 3.4 % 04/16/19 19:03 Eos % (Auto) 3.1 % 04/16/19 19:03 Baso % (Auto) 0.2 % 04/16/19 19:03 Immature Gran # (Auto) 0.02 K/uL (0.00-0.02) 04/16/19 19:03 Neut # (Auto) 5.54 K/uL (1.4-6.5) 04/16/19 19:03 Lymph # (Auto) 0.23 K/uL (1.2-3.4) L 04/16/19 19:03 Christian # (Auto) 0.21 K/uL (0.11-0.59) 04/16/19 19:03 Eos # (Auto) 0.19 K/uL (0-0.5) 04/16/19 19:03 Baso # (Auto) 0.01 K/uL (0-0.2) 04/16/19 19:03 PT 24.8 Seconds (9.0-12.0) H 04/16/19 19:03 INR 2.6 (0.9-1.1) H 04/16/19 19:03 APTT 40.3 Seconds (21.0-31.0) H 04/16/19 19:03 PTT Ratio 1.5 04/16/19 19:03 Sodium 137 mmol/L (136-145) 04/16/19 19:03 Potassium 4.1 mmol/L (3.5-5.1) 04/16/19 19:03 Chloride 104 mmol/L (98-107) 04/16/19 19:03 Carbon Dioxide 28 mmol/L (21-32) 04/16/19 19:03 Anion Gap 5.0 (3-11) 04/16/19 19:03 BUN 23 mg/dl (7-18) H 04/16/19 19:03 Creatinine 1.25 mg/dl (0.6-1.2) H 04/16/19 19:03 Est Cr Clr Drug Dosing 49.2 ml/min 04/16/19 19:03 Est GFR ( Amer) 53.8 04/16/19 19:03 Est GFR (Non-Af Amer) 46.4 04/16/19 19:03 BUN/Creatinine Ratio 18.3 (10-20) 04/16/19 19:03 Glucose 138 mg/dl (70-99) H 04/16/19 19:03 Calcium 9.3 mg/dl (8.5-10.1) 04/16/19 19:03 Total Bilirubin 0.5 mg/dl (0.2-1) 04/16/19 19:03 AST 23 U/L (15-37) 04/16/19 19:03 ALT 29 U/L (12-78) 04/16/19 19:03 Alkaline Phosphatase 86 U/L (45-117) 04/16/19 19:03 Troponin I < 0.015 ng/ml (0-0.045) 04/16/19 19:03 Total Protein 8.9 gm/dl (6.4-8.2) H 04/16/19 19:03 Albumin 3.6 gm/dl (3.4-5.0) 04/16/19 19:03 Globulin 5.3 gm/dl (2.5-4.0) H 04/16/19 19:03 Albumin/Globulin Ratio 0.7 (0.9-2) L 04/16/19 19:03 TSH 2.630 uIu/ml (0.300-4.500) 04/16/19 19:03 Urine Color Dark Yellow 04/16/19 19:03 Urine Appearance Clear (Clear) 04/16/19 19:03 Urine pH 5.0 (4.5-7.5) 04/16/19 19:[address] 1.025 (1.000-1.030) 04/16/19 19:03 Urine Protein 1+ (Negative) H 04/16/19 19:03 Urine Glucose (UA) Negative (Negative) 04/16/19 19:03 Urine Ketones Negative (Negative) 04/16/19 19:03 Urine Blood Negative (Negative) 04/16/19 19:03 Urine Nitrite Negative (Negative) 04/16/19 19:03 Urine Bilirubin Negative (Negative) 04/16/19 19:03 Urine Urobilinogen Negative (Negative) 04/16/19 19:03 Ur Leukocyte Esterase Negative (Negative) 04/16/19 19:03 Urine WBC (Auto) 1-5 /hpf (0-5) 04/16/19 19:03 Urine RBC (Auto) 5-10 /hpf (0-4) H 04/16/19 19:03 U Hyaline Cast (Auto) 10-30 /lpf (0-5) H 04/16/19 19:03 U Epithel Cells (Auto) 20-30 /lpf (0-5) H 04/16/19 19:03 Urine Bacteria (Auto) Negative (Negative) 04/16/19 19:03 Diagnostic Findings [place], [place] [phone] XRay Report Patient: LAZARO BACK Date: 04/16/19 MR#: [id number]: [id number] BROOKE Acct ID:[id number]: Date: 1955[facility] Zip: [place] [address] Age: 63Location: ED Sex: F Room/Bed: Att Phy:Diagnosis: FLU SYMPTOMS, DEHYDRATED Mar Phy: Alex Jonas, III, CRNPService Date: 04/16/19 Fam Phy:Interpreting Phy: Goran Mosqueda MD Admit Phy: Ordering Phy: Anselmo Vizcaino M.D. cc: ~ XR chest 1V portable CLINICAL HISTORY: weakness dyspnea COMPARISON STUDY: 08/19/2015 FINDINGS: The bones soft tissues and hemidiaphragms are normal. The cardiomediastinal silhouette is normal. The lungs are clear. The pulmonary vasculature is normal. IMPRESSION: Negative chest. ACT 112: Negative or not required by law. The above report was generated using voice recognition software. It may contain grammatical, syntax or spelling errors. Electronically signed by: Goran Mosqueda M.D. 04/16/2019 7:04 PM Dictated: 04/16/191902 Transcribed: 04/16/191902 Code Status & VTE Plan VTE Prophylaxis Plan VTE Prophylaxis will be ordered: Yes PG Care Time/CCT Total # of Minutes Spent Total Time Spent: 55 Total Time Spent with Patient: Total time spent is greater than 50% in coordination of care (as documented) at patient's floor/unit and/or counseling patient:
[2019-04-17] MEDS ORDERED: ONDANSETRON INJ 2 MG/ML 2 ML VIAL IV PRN (00:48)
[2019-04-17] MEDS ORDERED: KETOROLAC TROMETHAMINE 15 MG/ML VIAL IV PRN (00:48)
[2019-04-17] MEDS ORDERED: ACETAMINOPHEN 325 MG TAB PO PRN (00:48)
[2019-04-17] MEDS ORDERED: ALBUTEROL 0.083% NEBU SOLN 3 ML VIAL NEB PRN (00:48)
[2019-04-17] MEDS: LACTATED RINGER'S 1,000 ML IV SCH ×4 (01:02→20:56)
[2019-04-17] MEDS: FAMOTIDINE 20 MG in SYRINGE 3 ML IV SCH ×3 (01:23→21:25)
[2019-04-17 06:14] LABS: Hematocrit (blood only) 38.8 % (37-47); Hemoglobin 12.4 g/dL (12.0-16.0); Mean Corpuscular Hemoglobin 25.7 pg (25-34); Mean Corpuscular Volume 80.5 fL (80-100); Mean Platelet Volume 9.3 fL (7.4-10.4); Platelet Count 152 K/uL (130-400); RDW Standard Deviation 43.9 fL (36.4-46.3); Red Blood Count 4.82 M/uL (4.2-5.4); White Blood Count 4.44 K/uL (4.8-10.8)
[2019-04-17 06:26] LABS: INR 2.3 (0.9-1.1); Prothrombin Time 21.9 Seconds (9.0-12.0)
[2019-04-17 06:57] LABS: BUN Creatinine Ratio 15.8 (10-20); Calcium 8.1 mg/dl (8.5-10.1); Creatinine Clr Calc Pharmacy 56.7 ml/min; Est GFR (African American) 64.2; Est GFR (Non-African American) 55.4; Potassium 3.8 mmol/L (3.5-5.1)
--- NOTE | 2019-04-17 12:43 | Electrocardiogram Report ---
Test Reason : Blood Pressure : / mmHG Vent. Rate : 088 BPM Atrial Rate : 088 BPM P-R Int : 098 ms QRS Dur : 080 ms QT Int : 354 ms P-R-T Axes : -12 015 038 degrees QTc Int : 428 ms Sinus rhythm with short SD Low voltage QRS Borderline ECG When compared with ECG of 15-NOV-2016 13:56, No significant change Confirmed by Kolton Smith ([id number]) on 04/17/2019 12:43:47 PM Referred By: REFERRED SELF Confirmed By:Kolton Smith
[2019-04-17] MEDS ORDERED: WARFARIN SOD 2.5 MG TAB PO SCH (16:00)
--- NOTE | 2019-04-17 20:07 | Hospitalist Progress Note ---
Date of Service April 17, 2019 Assessment & Plan (1) Viral gastroenteritis: I feel this is likely cause of her vomiting and increased ostomy output. Her son had viral gastroenteritis few days prior. Patient is clinically improving. will continue treatment as stated below. IVF Antiemetics Advance diet as tolerated. 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 INR therapeutic at 2.6 Continue warfarin. Subjective 63 yo female reports feeling well. Patient still has some nausea however, and loose stools in her ostomy. Review of Systems Review of Systems: Constitutional- no fever; no weight loss Eyes- no acute visual changes ENT- no sinus drainage; no pharyngitis Pulmonary- no cough, no wheezing, no shortness of breath Cardiac- no chest pain, no palpitations, no orthopnea, no dependent edema GI- As in HPI. - no dysuria, no hematuria Musculoskeletal- no arthralgias, no myalgias Derm- no rashes, no new skin lesions, no changing skin lesions Hematologic- no unusual bruising, no unusual bleeding Lymphatics- no adenopathy Endocrine- no polyuria or polydipsia; no heat or cold intolerance Neuro- no headaches, no focal neurologic symptoms Psych- no anxiety, no depression Physical Exam Physical Exam: General- adult Head- atraumatic Eyes- PERRL, EOMI, anicteric ENT- oropharynx clear Neck- supple, no JVD, no adenopathy, no thyromegaly; carotids +2/2, no bruits appreciated Lungs- clear to auscultation and percussion Heart- regular rhythm; no murmur, no gallop, no rub appreciated Abdomen- normal bowel sounds, soft, nontender, Ostomy has a watery brown output. 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 Skin- warm & dry Results & Data Vital Signs (Past 12 Hours) Vital Signs Temp Pulse Resp BP Pulse Ox 04/17/19 14:59 36.8 C 62 22 134/83 93 PG Care Time/CCT Total # of Minutes Spent Total Time Spent with Patient: Total time spent is greater than 50% in coordination of care (as documented) at patient's floor/unit and/or counseling patient:
[2019-04-17] MEDS ORDERED: Nursing to Pharmacy Communication ONE (23:47)
[2019-04-18] MEDS: LACTATED RINGER'S 1,000 ML IV SCH ×2 (03:22→10:06)
[2019-04-18 06:28] LABS: Prothrombin Time 19.9 Seconds (9.0-12.0)
[2019-04-18] MEDS: FAMOTIDINE 20 MG in SYRINGE 3 ML IV SCH (08:12)
[2019-04-18] MEDS ORDERED: FLUTICASONE/SALMETEROL 100/50 (ADVAIR) 14 PUFF/1 INHALER INH SCH (21:00)
[2019-04-20] MEDS ORDERED: WARFARIN SOD 2.5 MG TAB PO SCH (16:00)
--- NOTE | 2019-04-23 23:23 | Discharge Summary ---
Date of Service April 18, 2019 Principal Diagnosis viral gastroenteritis Discharge Exam General- adult Head- atraumatic Eyes- PERRL, EOMI, anicteric ENT- oropharynx clear Neck- supple, no JVD, no adenopathy, no thyromegaly; carotids +2/2, no bruits appreciated Lungs- clear to auscultation and percussion Heart- regular rhythm; no murmur, no gallop, no rub appreciated Abdomen- normal bowel sounds, soft, nontender, Ostomy has a stool, no longer liquid in consistency, more thick. Extremities- no pretibial edema, no calf tenderness; peripheral pulses intact Neuro- alert, oriented x 3; PERRL, EOMI; transportation dispatch manager II-XII grossly intact, non-focal. Skin- warm & dry Discharge Data Allergies Allergy/AdvReac Type Severity Reaction Status Date / Time Cipro Allergy Intermediate IV Verified 11/22/17 11:10 DOSE-BURNED UP ARM ciprofloxacin Allergy Intermediate IV Verified 04/19/19 08:25 DOSE-BURNED UP ARM Iodinated Contrast Media Allergy Unknown CAT SCAN Verified 04/19/19 08:25 DYE-RASH ITCHING Consultations 04/16/19 22:09 ED Decision to Admit Stat Hospital Course (1) Viral gastroenteritis: I feel this is likely cause of her vomiting and increased ostomy output. Her son had viral gastroenteritis few days prior. Patient is clinically improving. will continue treatment as stated below. IVF Antiemetics Advance diet as tolerated. On day 2, patient improved. (2) High output ileostomy: IVF initially, this was stopped once high output decreased. (3) Dehydration: minimal elelvated to BUN/creat (4) Crohn's disease: I do not feel this is a flare She has not had any symptoms related to Crohn's since colectomy (5) Superficial thrombophlebitis of left leg: Patient is on warfarin due to history DVT I suspect she has hypercoagulable state. INR therapeutic at 2.6 Continue warfarin. Total Time Total Time Spent Total Time Spent (In Minutes): 32 Total Time Includes: Examination of the Patient, Discharge Planning and Medication Reconciliation Discharge Plan Discharge Items Patient Disposition: Home - Self-Care Reason For Visit: PERSISTENT VOMITING/DEHYDRATION Discharge Diagnosis: Persistent vomiting/ dehydration Activity: Resume your previous activity Non-emergency contact: Primary Care Provider Call non-emergency contact if: you have any medication questions Follow-up/Referrals: Alex Jonas III, MARCUS [Primary Care Provider] - Diet: Regular Addtl Attending Provider Instructions: You have been hospitalized for an acute medical problem: viral gastroenteritis. During your stay at [facility], we have made an effort to correct the problem that brought you to the hospital while keeping you as comfortable as possible. Your discharge instructions will include directions for any medications you should take after leaving the hospital. Please make sure you see your Primary Care Provider as part of your follow up plan. Pending Studies at Discharge: No Stand-Alone Forms: My [facility], Smoking Cessation Medications and DC Order Prescriptions: Continued warfarin 2.5 mg tablet 3.75 mg PO WK RF: 0 warfarin 2.5 mg tablet 2.5 mg PO 6XWK RF: 0 Breo Ellipta 100-25 mcg/dose blister with device 1 puffs INH QAM RF: 0 No Action neomycin-polymyxin B-dexameth 3.5mg/mL-10,000 unit/mL-0.1 % drops,suspension See Rx Instructions OP Q4H 7 Days Qty: 5 RF: 0 clotrimazole 10 mg josue 10 mg mucous membrane 5XD 14 Days Qty: 70 RF: 0 Discharge Orders: Discharge Order (Routine); Ordered 04/18/19 Ordered By: Michael Parra Admission Data Admit Date/Time: 04/16/19 22:39 Attending Provider: Michael Parra Admit Provider: Chris Clay Primary Care Provider: Alex Jonas III Other Providers: Chris Clay Other Interventions: Discharge Summary Assessment (RN) Last Done: 04/18/19 14:24 DC Date/Time DO NOT enter until pt leaves facility: 04/18/19 15:04
== END 2019-04-18 15:04 | disposition home or self-care (01) ==
LOC: ED 16:31 → 4W 16:31 → SUATTDRO 22:39 → 4W 23:47